=== PATIENT | female | born 1945 | race Caucasian/White ===

== ENCOUNTER → 2016-10-13 | Outpatient (CLI) | payer BC ==
[2016-10-13 13:42] LABS: BASO % 0.3 %; BASO ABS # 0.02 K/uL (0-0.2); COMPLETE YES; EOS % 1.3 %; HEMATOCRIT 42.1 % (37-47); IG% 0.2 %; LYMPH ABS # 1.71 K/uL (1.2-3.4); MEAN CELL VOLUME 91.1 fL (80-100); MEAN CORPUSCULAR HEMOGLOBIN 30.7 pg (25-34); MEAN CORPUSCULAR HGB CONC 33.7 g/dl (32-36); MEAN PLATELET VOLUME 12.5 fL (7.4-10.4); MONO % 9.2 %; PLATELET COUNT 194 K/uL (130-400); RED BLOOD COUNT 4.62 M/uL (4.2-5.4)
[2016-10-13 13:50] LABS: ALT/SGPT 29 U/L (12-78); AST/SGOT 12 U/L (15-37); BLOOD UREA NITROGEN 12 mg/dl (7-18); BUN/CREATININE RATIO 15.8 (10-20); CALCIUM 10.1 mg/dl (8.5-10.1); CARBON DIOXIDE 29 mmol/L (21-32); CHLORIDE 110 mmol/L (98-107); CREATININE 0.75 mg/dl (0.60-1.20); GLUCOSE 88 mg/dl (70-99); POTASSIUM 4.6 mmol/L (3.5-5.1); SODIUM 145 mmol/L (136-145)
[2016-10-13 13:56] LABS: ALB/GLOB RATIO 1.1 (0.9-2); ALKALINE PHOSPHATASE 128 U/L (45-117); CHOLESTEROL 191 mg/dl (0-200); CHOLESTEROL/HDL RATIO 2.6; HDL CHOLESTEROL 74 mg/dl; LDL CHOLESTEROL CALCULATED 99 mg/dl; TRIGLYCERIDES 91 mg/dl (0-150); VERY LOW DENSITY LIPOPROT CALC 18 mg/dl
== END | disposition home or self-care (01) ==
LOC: C.LABBC 09:47
PROVIDERS: ATTEND Internal Medicine
DX: Z00.00 Encounter for general adult medical examination without abnormal findings (principal); R74.8 Abnormal levels of other serum enzymes

== ENCOUNTER → 2017-05-09 | Outpatient (CLI) | payer BC ==
--- NOTE | 2017-05-09 15:34 | MAMMOGRAPHY REPORT ---
BILATERAL DIGITAL SCREENING MAMMOGRAM WITH CAD: 05/09/2017 CLINICAL HISTORY: Routine screening examination. TECHNIQUE: Bilateral CC and MLO views were obtained. Current study was also evaluated with a Compute r Aided Detection (CAD) system. COMPARISON: Comparison is made to exams dated: 05/06/2016 mammogram, 04/22/2015 mammogram, 04/16/2014 ma mmogram, and 04/12/2013 mammogram - [facility]. BREAST COMPOSITION: There are scattered areas of fibroglandular density in both breasts. FINDINGS: There is a stable intramammary lymph node in the right upper outer quadrant posteriorly. Stable focal asymmetry in the left upper outer posterior breast. No new suspicious mass, architectur al distortion or cluster of microcalcifications is seen. IMPRESSION: ACR BI-RADS CATEGORY 1: NEGATIVE There is no mammographic evidence of malignancy. A 1 year screening mammogram is recommended. The pa tient will receive written notification of the results. Approximately 10% of breast cancers are not detected with mammography. A negative mammographic report should not delay biopsy if a clinically suggestive mass is present. Kaylie Allen M.D. ay/:05/09/2017 14:45:20 Clinical Nursing Coordinator: Yvette ALBA(R)(M), [facility] letter sent: Normal 1/2 BI-RADS Code: ACR BI-RADS Category 1: Negative
== END | disposition home or self-care (01) ==
LOC: C.MAMM 11:24
PROVIDERS: ATTEND Internal Medicine
DX: Z12.31 Encounter for screening mammogram for malignant neoplasm of breast (principal)

== ENCOUNTER → 2017-06-15 | Outpatient (CLI) | payer BC ==
[2017-06-15 10:45] LABS: HEMATOCRIT 44.2 % (37-47); MEAN CELL VOLUME 92.3 fL (80-100); MEAN CORPUSCULAR HEMOGLOBIN 29.4 pg (25-34); MEAN CORPUSCULAR HGB CONC 31.9 g/dl (32-36); MEAN PLATELET VOLUME 12.3 fL (7.4-10.4); PLATELET COUNT 205 K/uL (130-400); RED BLOOD COUNT 4.79 M/uL (4.2-5.4); WHITE BLOOD COUNT 4.25 K/uL (4.8-10.8)
[2017-06-15 11:11] LABS: ALT/SGPT 21 U/L (12-78); AST/SGOT 10 U/L (15-37); BLOOD UREA NITROGEN 12 mg/dl (7-18); BUN/CREATININE RATIO 20.5 (10-20); CALCIUM 10.6 mg/dl (8.5-10.1); CARBON DIOXIDE 27 mmol/L (21-32); CHLORIDE 109 mmol/L (98-107); CHOLESTEROL 200 mg/dl (0-200); GLUCOSE 88 mg/dl (70-99); POTASSIUM 4.3 mmol/L (3.5-5.1); SODIUM 143 mmol/L (136-145); TRIGLYCERIDES 61 mg/dl (0-150); VERY LOW DENSITY LIPOPROT CALC 12 mg/dl
[2017-06-15 11:16] LABS: ALB/GLOB RATIO 1.2 (0.9-2); ALKALINE PHOSPHATASE 133 U/L (45-117); CHOLESTEROL/HDL RATIO 2.5; HDL CHOLESTEROL 81 mg/dl; LDL CHOLESTEROL CALCULATED 107 mg/dl
== END | disposition home or self-care (01) ==
LOC: C.LABBC 08:52
PROVIDERS: ATTEND Internal Medicine
DX: R74.8 Abnormal levels of other serum enzymes (principal)

== ENCOUNTER → 2017-09-13 | Outpatient (CLI) | payer BC ==
[~2017-09-13] MED LIST: ASPCH81X PO; VITAMIN D PO
[2017-09-13 13:24] LABS: BLOOD UREA NITROGEN 11 mg/dl (7-18); CALCIUM 9.9 mg/dl (8.5-10.1); CARBON DIOXIDE 28 mmol/L (21-32); CREATININE 0.66 mg/dl (0.60-1.20); GLUCOSE 87 mg/dl (70-99); POTASSIUM 4.4 mmol/L (3.5-5.1); SODIUM 139 mmol/L (136-145)
== END | disposition home or self-care (01) ==
LOC: C.LABBC 09:43
PROVIDERS: ATTEND Internal Medicine
DX: E83.52 Hypercalcemia (principal); R74.8 Abnormal levels of other serum enzymes

== ENCOUNTER → 2017-10-17 | Outpatient (CLI) | payer BC | END | disposition home or self-care (01) | LOC: C.MAMM 09:13 | PROVIDERS: ATTEND Internal Medicine | DX: M85.88 Other specified disorders of bone density and structure, other site (principal); M81.0 Age-related osteoporosis without current pathological fracture; E21.3 Hyperparathyroidism, unspecified ==

== ENCOUNTER → 2017-11-14 | Day surgery (SDC) | payer BC ==
[2017-11-01 14:55] VITALS: Ht 167.6 cm; Wt 81.8 kg
[~2017-11-14] VITALS: Ht 167.6 cm; Wt 81.8 kg
[~2017-11-14] MED LIST changes: +LIDOCAINE HCL 2% 2 ML VIAL (20MG/ML) ONE; +PROPOFOL IV EMULSION 10 MG/ML 20 ML VIAL IV ONE
--- NOTE | 2017-11-14 09:48 | Endo History and Physical ---
History & Physical Date of Service: Nov 14, 2017. Chief Complaint: Screening Referring Physician: Dr. Pablo Sue History of Present Illness 72 yo CF who presents for screening colonoscopy. Past Surgical History Hx Cardiac Surgery: No Hx Internal Defibrillator: No Hx Pacemaker: No Hx Abdominal Surgery: Yes (D&E) Hx of Implantable Prosthesis: No Hx Post-Op Nausea and Vomiting: No Hx Cancer Surgery: No Hx Thoracic Surgery: No Hx Orthopedic: No Hx Urinary Tract Surgery: No Family History None Social History Smoking Status: Never Smoker Hx Substance Use: No Hx Alcohol Use: Yes (OCCASIONALLY) Allergies Coded Allergies: NO KNOWN DRUG ALLERGIES (Verified Allergy, Unknown, ., 11/01/17) Current Medications Reported Home Medications Medications Dose Route/Sig Max Daily Dose Days Date Category [Vitamin D] 1 Tab PO QAM 11/01/17 Reported Aspirin Chewable (Aspirin) 81 Mg Chew 81 Mg PO QAM 11/01/17 Reported Vital Signs Weight (Kilograms): 81.82 Height (Feet): 5 Height (Inches): 6 Physical Exam General Appearance: WD/WN, no apparent distress Respiratory/Chest: Auscultation: breath sounds normal Cardiovascular: Heart Auscultation: RRR Abdomen: Bowel Sounds: normal Inspection & Palpation: soft, non-distended, no tenderness, guarding & rebound Assessment and Plan Assessment: 72 yo CF who presents for screening colonoscopy. Plan: Proceed with colonoscopy.
--- NOTE | 2017-11-14 11:12 | Discharge Instructions ---
Endoscopy Patient Instructions Date / Procedure(s) Performed Nov 14, 2017. Colonoscopy Allergy Information Coded Allergies: NO KNOWN DRUG ALLERGIES (Verified Allergy, Unknown, ., 11/01/17) Discharge Date / Findings Nov 14, 2017. Colon polyps Diverticulosis Internal hemorrhoids Medication Instructions Stopped Medication(s): Patient stopped her aspirin and vitamin d. OK to resume all medications today as prescribed Reported Home Medications Medications Dose Route/Sig Max Daily Dose Days Date Category [Vitamin D] 1 Tab PO QAM 11/01/17 Reported Aspirin Chewable (Aspirin) 81 Mg Chew 81 Mg PO QAM 11/01/17 Reported Provider Instructions Activity Restrictions - No exercising or heavy lifting for 24 hours. - Do not drink alcohol the day of the procedure. - Do not drive a car or operate machinery until the day after the procedure. - Do not make any important decisions or sign important papers in 24 hours after the procedure. Following Day: - Return to full activity which may include returning to work/school. Diet Start your diet with liquids and light foods (jello, soup, juice, toast). Then eat your usual diet if not nauseated. Treatment For Common After Affects For mild abdominal pain, bloating, or excessive gas: - Rest - Eat lightly - Lie on right side Follow-Up Information Follow-up with Dr. Pablo Sue as scheduled Anesthesia Information What You Should Know You have had a procedure that required some medicine to reduce anxiety and discomfort. This treatment is called moderate sedation. After receiving the treatment, you may be sleepy, but you will be able to breathe on your own. The effects of the treatment may last for several hours. Follow these instructions along with Activity/Diet recommendations noted above: * Do NOT do anything where dizziness or clumsiness would be dangerous. * Rest quietly at home today, then you can be up and about tomorrow. * Have a responsible person stay with you the rest of today. * You may have had an I.V. today. If so, you may take the dressing off later today. Recommendations Call your doctor if: * Trouble breathing * Continuous vomiting for more than 24 hours * Temperature above 101 degrees * Severe abdominal pain or bloating * Pain not relieved by pain medicine ordered * There is increased drainage or redness from any incision * A large amount of rectal bleeding greater than 2-3 tablespoons. (If you had a polyp/s removed or have hemorrhoids, a small amount of blood - from the rectum is to be expected.) * You have any unanswered questions or concerns. IN THE EVENT OF A SERIOUS EMERGENCY, GO TO THE NEAREST EMERGENCY ROOM Your discharge instructions were prepared by provider Jose Neumann. Patient Instructions Signature Page Alda Ibrahim Patient (or Guardian) Signature/Date: I have read and understand the instructions given to me by my caregivers. Caregiver/RN/Doctor Signature/Date: The above-named patient and/or guardian has received patient instructions on this date. + Original Patient Signature Page (only) stays with chart. Please make copy for patient.
--- NOTE | 2017-11-14 11:21 | GI REPORT ---
Procedure Date: 11/14/2017 10:39 AM Procedure: Colonoscopy Indications: Screening for colorectal malignant neoplasm Medicines: Monitored Anesthesia Care Complications: No immediate complications. Estimated Blood Loss: Estimated blood loss: none. Procedure: Pre-Anesthesia Assessment: - Prior to the procedure, a History and Physical was performed, and patient medications and allergies were reviewed. The patient's tolerance of previous anesthesia was also reviewed. The risks and benefits of the procedure and the sedation options and risks were discussed with the patient. All questions were answered, and informed consent was obtained. Prior Anticoagulants: The patient has taken aspirin, last dose was 2 days prior to procedure. ASA Grade Assessment: I - A normal, healthy patient. After reviewing the risks and benefits, the patient was deemed in satisfactory condition to undergo the procedure. After I obtained informed consent, the scope was passed under direct vision. Throughout the procedure, the patient's blood pressure, pulse, and oxygen saturations were monitored continuously. The scope was introduced through the anus and advanced to the terminal ileum. The colonoscopy was performed without difficulty. The patient tolerated the procedure well. The quality of the bowel preparation was good. The terminal ileum, ileocecal valve, appendiceal orifice, and rectum were photographed. Findings: The perianal and digital rectal examinations were normal. A 3 mm polyp was found in the ascending colon. The polyp was sessile. The polyp was removed with a cold biopsy forceps. Resection and retrieval were complete. Two sessile polyps were found in the transverse colon. The polyps were 4 to 5 mm in size. These polyps were removed with a cold snare. Resection and retrieval were complete. Multiple small-mouthed diverticula were found in the sigmoid colon. Non-bleeding internal hemorrhoids were found during retroflexion. The hemorrhoids were small. Impression: - One 3 mm polyp in the ascending colon, removed with a cold biopsy forceps. Resected and retrieved. - Two 4 to 5 mm polyps in the transverse colon, removed with a cold snare. Resected and retrieved. - Diverticulosis in the sigmoid colon. - Non-bleeding internal hemorrhoids. Recommendation: - Resume previous diet. - Continue present medications. - Repeat colonoscopy for surveillance based on pathology results. - Return to primary care physician as previously scheduled. Jose Neumann DO 11/14/2017 11:20:38 AM This report has been signed electronically. Note Initiated On: 11/14/2017 10:39 AM I attest to the content of the Intraoperative Record and orders documented therein, exceptions below
--- NOTE | 2017-11-14 11:35 | Anesthesiology Progress Note ---
Anesthesia Post Op Note Date & Time Nov 14, 2017 at 11:35 Vital Signs Pain Intensity: 0 Vital Signs Past 12 Hours Date Time Temp Pulse Resp B/P (MAP) Pulse Ox O2 Delivery O2 Flow Rate FiO2 11/14/17 11:26 63 16 162/99 (120) 100 Room Air 11/14/17 11:11 69 16 143/74 (97) 98 Room Air 11/14/17 09:52 36.6 68 18 141/82 (101) 97 Room Air Notes Mental Status: alert / awake / arousable, participated in evaluation Pt Amnestic to Procedure: Yes Nausea / Vomiting: adequately controlled Pain: adequately controlled Airway Patency, RR, SpO2: stable & adequate BP & HR: stable & adequate Hydration State: stable & adequate Anesthetic Complications: no major complications apparent
[2017-11-14 11:41] VITALS: BP 153/105; PULSE 60; O2SAT 100
== END | disposition home or self-care (01) ==
LOC: C.GI 09:23
PROVIDERS: ATTEND Internal Medicine
DX: Z12.11 Encounter for screening for malignant neoplasm of colon (principal); D12.2 Benign neoplasm of ascending colon; D12.3 Benign neoplasm of transverse colon; K57.30 Diverticulosis of large intestine without perforation or abscess without bleeding; K64.8 Other hemorrhoids; Z79.82 Long term (current) use of aspirin

== ENCOUNTER → 2017-12-23 | Outpatient (CLI) | payer BC ==
[~2017-12-23] MED LIST changes: -LIDOCAINE HCL 2% 2 ML VIAL (20MG/ML) ONE; -PROPOFOL IV EMULSION 10 MG/ML 20 ML VIAL IV ONE
[2017-12-23 14:18] LABS: ALBUMIN 4.1 gm/dl (3.4-5.0); ALT/SGPT 40 U/L (12-78); BLOOD UREA NITROGEN 18 mg/dl (7-18); CALCIUM 10.4 mg/dl (8.5-10.1); CARBON DIOXIDE 26 mmol/L (21-32); CREATININE 0.62 mg/dl (0.60-1.20); GLUCOSE 95 mg/dl (70-99); POTASSIUM 4.4 mmol/L (3.5-5.1); SODIUM 139 mmol/L (136-145)
[2017-12-23 14:28] LABS: ALKALINE PHOSPHATASE 133 U/L (45-117); AST/SGOT 19 U/L (15-37); TOTAL PROTEIN 7.2 gm/dl (6.4-8.2)
== END | disposition home or self-care (01) ==
LOC: C.LAB1850 12:00
PROVIDERS: ATTEND Internal Medicine
DX: E21.3 Hyperparathyroidism, unspecified (principal)

== ENCOUNTER 2023-01-12 08:07 | Inpatient (IN) ==
[2023-01-12] MEDS ORDERED: ONDANSETRON INJ 2 MG/ML 2 ML VIAL IV STA (08:34)
[2023-01-12] MEDS ORDERED: SODIUM CHLORIDE 0.9% 500 ML IV ONE (08:34)
[2023-01-12] MEDS ORDERED: MoRPHine SULFATE 4 MG/ML 1 ML CARP\\VIAL IV STA (08:34)
--- NOTE | 2023-01-12 08:38 | Emergency Department Note ---
Impression & Plan Acute pancreatitis, Abdominal pain, Vomiting ED Provider Note NAME: ANDI FLOYD AGE: 77 SEX: F : 1945 ARRIVES VIA: Walk-In INFORMANT: Patient ED PROVIDER(S): Epifanio Farmer DO CHIEF COMPLAINT: abdominal pain HPI: Patient is a 77-year-old female who presents to the ER for epigastric abdominal pain which radiates through to the back associated with nausea and vom iting. She notes this started yesterday. It is worse with eating. Improves with bowel rest. She has been passing much more gas and burping much more. Denies any dysuria urgency or frequency. No chest pain or shortness of breath. No exertional symptoms. 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 She has not been eating and drinking much secondary to the pain. Has not take anything specifically for the pain. PAST MEDICAL HISTORY:See Below PAST SURGICAL HISTORY:See Below FAMILY HISTORY:See Below SOCIAL HISTORY:See Below HOME MEDICATIONS:See Below ALLERGIES:See Below VITALS:See Below PHYSICAL EXAMINATION: GENERAL: Sitting up in bed, alert, well appearing, well nourished, no distress, non-toxic EYE EXAM: normal conjunctiva. OROPHARYNX:mucous membranes are moist LUNGS: Clear to auscultation. Normal chest wall mechanics HEART: no murmurs, S1 normal and S2 normal ABDOMEN: abdomen soft, TTP in epigastric region, normo-active bowel sounds, no masses, no rebound or guarding. BACK: Back is symmetrical on inspection and there is no deformity, no midline tenderness, no CVA tenderness. UPPER EXTREMITIES: upper extremities are grossly normal. LOWER EXTREMITIES: No pitting edema. NEURO EXAM: Normal sensorium, cranial nerves II-XII grossly intact, normal speech, no gross weakness of arms, no gross weakness of legs. MEDICAL DECISION MAKING: Patient is a 77-year-old female who presents ER for abdominal pain. IV was established blood work was obtained. External records were reviewed. Labs show mild leukocytosis 11,000. No significant anemia. BMP with slightly elevated chloride at 110. Bilirubin LFTs were unremarkable. Lipase was elevated at 300. UA was contaminated without urinary symptoms. CT abdomen pelvis confirms acute pancreatitis. She was given fluids Zofran and 2 doses of morphine. She is updated bedside discussed with the hospitalist Dr. Bro Villeda as well as the care managers and admitted for further work-up. Triage Nursing notes reviewed. Limited review of prior medical records performed Vital Signs: reviewed and remarkable for HTN Differential diagnosis: Differential diagnoses includes but is not limited to gastritis, peptic ulcer disease, GERD, gallbladder disease, pancreatitis, small bowel obstruction, appendicitis, diverticulitis, hernia, urinary tract infection, torsion, perforation, trauma, infectious. ER treatment provided: See below Diagnostics interpreted by me include EKG and cardiac monitoring as listed below: -Cardiac Monitoring: An order was placed for continuous cardiac monitoring. The monitor shows a rate of 90 with sinus rhythm. -ECG: Sinus rhythm rate 83 Left axis No PVCs QTc 441 -Laboratory studies:Interpreted by me as stated above in MDM and shown below. Imaging studies: Xrays: As interpreted by me:none CTs show: CT abdomen pelvis per my read showed no obvious obstruction CT abdomen pelvis per radiology shows pancreatitis Consultation(s): As described in MDM Procedures:none Critical Care: None Past Med/Surg History Medical History (Updated 01/12/23 @ 15:13 by Epifanio Farmer DO) Diverticulosis Mild hypertension pt reports no meds needed Vitamin D deficiency Surgical History H/O breast biopsy H/O parathyroidectomy History of surgery Whipple Procedure 2019- had a non cancerous spot on pancreas Hx of colonoscopy S/P tubal ligation Family History Father Stroke syndrome Coronary heart disease Mother Coronary heart disease Lung cancer Myocardial infarction Sister Breast cancer Unknown Breast cancer Aunt Breast cancer Denies family history of Ovarian cancer Prostate cancer Colorectal cancer Social History Smoking Status: Never smoker Second Hand Exposure: No; Do You Dip or Chew Tobacco: No; Hx Alcohol Use: Yes Alcohol type: wine Hx Substance Use: No Preferred Language: Azerbaijani Communication Ability: Effective Visual Impairment: No Limitations Hearing Ability: Normal Grain Grader Required: No Beliefs That Will Affect Care: None marital status: Current Living Situation: Spouse current occupational status: retired Feels Safe at Home: Yes Childhood Exposure to Second-Hand Smoke: No Dental Care, Regularly: Yes Physical Activity Frequency: 3-4 Times per Week Seatbelt Use: always Sunscreen Use: Yes Assistive Devices: Glasses Allergies Allergies Allergy/AdvReac Type Severity Reaction Status Date / Time No Known Drug Allergies Allergy Unknown . Verified 01/04/23 08:44 Home Meds Home Medications Medication Instructions Recorded Confirmed aspirin 81 mg tablet,delayed 81 mg PO QAM 03/27/19 01/12/23 release (Jonnie Low Dose Aspirin) Previous Rx's Medication Instructions Recorded cholecalciferol (vitamin D3) 50 10,000 unit PO QAM #30 tabs 10/19/21 mcg (2,000 unit) tablet sodium sul 1.479 gram-potas ch See Rx Instructions PO .COMPLEX 12/31/22 0.188 gram-magnes sul 0.225 gram #24 tabs tablet (Sutab) Results & Data (ED) Vital Signs Vital Signs - 24 hr 01/12/23 08:19 01/12/23 08:32 01/12/23 08:47 Temperature 36.8 C Temperature Source Temporal Artery Scan Pulse Rate 91 H 81 Pulse Rate from SpO2 Sensor Respiratory Rate 18 Blood Pressure 187/84 H Blood Pressure Mean 118 Pulse Oximetry 97 97 Oxygen Delivery Method Room Air Room Air Sepsis Recent Fever Within 48 Hours No Sepsis New/Unexplained Change in Mental Status No Sepsis Action Taken by Nursing No Action Required 01/12/23 08:46 01/12/23 09:00 01/12/23 09:30 Temperature Temperature Source Pulse Rate 79 84 77 Pulse Rate from SpO2 Sensor 80 80 75 Respiratory Rate 27 H 21 17 Blood Pressure Blood Pressure Mean Pulse Oximetry 97 96 96 Oxygen Delivery Method Sepsis Recent Fever Within 48 Hours Sepsis New/Unexplained Change in Mental Status Sepsis Action Taken by Nursing 01/12/23 09:45 01/12/23 10:00 01/12/23 10:18 Temperature Temperature Source Pulse Rate 76 73 92 H Pulse Rate from SpO2 Sensor 76 75 88 Respiratory Rate 17 16 23 Blood Pressure Blood Pressure Mean Pulse Oximetry 96 95 95 Oxygen Delivery Method Sepsis Recent Fever Within 48 Hours Sepsis New/Unexplained Change in Mental Status Sepsis Action Taken by Nursing 01/12/23 10:30 01/12/23 10:38 01/12/23 10:38 Temperature Temperature Source Pulse Rate 77 79 Pulse Rate from SpO2 Sensor 79 80 Respiratory Rate 24 24 Blood Pressure 158/89 H Blood Pressure Mean 112 Pulse Oximetry 99 97 Oxygen Delivery Method Sepsis Recent Fever Within 48 Hours Sepsis New/Unexplained Change in Mental Status Sepsis Action Taken by Nursing 01/12/23 10:45 01/12/23 11:00 01/12/23 11:00 Temperature Temperature Source Pulse Rate 81 79 Pulse Rate from SpO2 Sensor 76 81 Respiratory Rate 17 17 Blood Pressure 172/82 H Blood Pressure Mean 112 Pulse Oximetry 93 96 Oxygen Delivery Method Sepsis Recent Fever Within 48 Hours Sepsis New/Unexplained Change in Mental Status Sepsis Action Taken by Nursing 01/12/23 11:15 01/12/23 11:30 01/12/23 11:30 Temperature Temperature Source Pulse Rate 79 85 Pulse Rate from SpO2 Sensor 79 80 Respiratory Rate 16 17 Blood Pressure 164/79 H Blood Pressure Mean 107 Pulse Oximetry 93 92 Oxygen Delivery Method Sepsis Recent Fever Within 48 Hours Sepsis New/Unexplained Change in Mental Status Sepsis Action Taken by Nursing 01/12/23 11:45 01/12/23 12:05 01/12/23 12:08 Temperature Temperature Source Pulse Rate 79 87 Pulse Rate from SpO2 Sensor 81 Respiratory Rate 19 15 Blood Pressure 169/76 H Blood Pressure Mean 107 Pulse Oximetry 95 Oxygen Delivery Method Sepsis Recent Fever Within 48 Hours Sepsis New/Unexplained Change in Mental Status Sepsis Action Taken by Nursing 01/12/23 12:08 01/12/23 12:15 01/12/23 12:30 Temperature Temperature Source Pulse Rate 83 80 Pulse Rate from SpO2 Sensor Respiratory Rate 22 14 Blood Pressure 167/93 H Blood Pressure Mean 117 Pulse Oximetry Oxygen Delivery Method Sepsis Recent Fever Within 48 Hours Sepsis New/Unexplained Change in Mental Status Sepsis Action Taken by Nursing 01/12/23 12:30 01/12/23 12:45 01/12/23 13:03 Temperature Temperature Source Pulse Rate 82 84 79 Pulse Rate from SpO2 Sensor Respiratory Rate 20 15 Blood Pressure Blood Pressure Mean Pulse Oximetry Oxygen Delivery Method Sepsis Recent Fever Within 48 Hours Sepsis New/Unexplained Change in Mental Status Sepsis Action Taken by Nursing 01/12/23 13:00 01/12/23 13:00 01/12/23 13:15 Temperature Temperature Source Pulse Rate 79 79 Pulse Rate from SpO2 Sensor Respiratory Rate 18 17 Blood Pressure 158/87 H Blood Pressure Mean 110 Pulse Oximetry Oxygen Delivery Method Sepsis Recent Fever Within 48 Hours Sepsis New/Unexplained Change in Mental Status Sepsis Action Taken by Nursing 01/12/23 13:30 01/12/23 13:30 01/12/23 13:45 Temperature Temperature Source Pulse Rate 79 79 Pulse Rate from SpO2 Sensor Respiratory Rate 18 15 Blood Pressure 155/81 H Blood Pressure Mean 105 Pulse Oximetry Oxygen Delivery Method Sepsis Recent Fever Within 48 Hours Sepsis New/Unexplained Change in Mental Status Sepsis Action Taken by Nursing 01/12/23 14:00 01/12/23 14:00 01/12/23 14:15 Temperature Temperature Source Pulse Rate 78 79 Pulse Rate from SpO2 Sensor Respiratory Rate 16 15 Blood Pressure 165/91 H Blood Pressure Mean 115 Pulse Oximetry Oxygen Delivery Method Sepsis Recent Fever Within 48 Hours Sepsis New/Unexplained Change in Mental Status Sepsis Action Taken by Nursing 01/12/23 14:30 01/12/23 14:30 01/12/23 14:45 Temperature Temperature Source Pulse Rate 79 83 Pulse Rate from SpO2 Sensor Respiratory Rate 16 15 Blood Pressure 153/79 H Blood Pressure Mean 103 Pulse Oximetry Oxygen Delivery Method Sepsis Recent Fever Within 48 Hours Sepsis New/Unexplained Change in Mental Status Sepsis Action Taken by Nursing Laboratory Data 01/12/23 08:30 01/12/23 08:30 Lab Results 01/12/23 01/12/23 01/12/23 Range/Units 08:30 08:30 08:50 WBC 11.02 H (4.8-10.8) K/ul RBC 4.60 (4.20-5.40) M/uL Hgb 14.1 (12.0-16.0) g/dl Hct 41.5 (37.0-47.0) % MCV 90.2 (80.0-100.0) fL MCH 30.7 (25.0-34.0) pg MCHC 34.0 (32.0-36.0) g/dL RDW Std Deviation 42.4 (36.4-46.3) fL RDW Coeff of Radha 13.0 (11.5-14.5) % Plt Count 233 (130-400) K/uL MPV 11.7 (9.4-12.4) fL Immature Gran % (Auto) 0.3 % Neut % (Auto) 80.8 % Lymph % (Auto) 11.7 % Parke % (Auto) 6.6 % Eos % (Auto) 0.3 % Baso % (Auto) 0.3 % Neut # (Auto) 8.91 H (1.40-6.50) K/uL Lymph # (Auto) 1.29 (1.2-3.4) K/uL Parke # (Auto) 0.73 H (0.11-0.59) K/uL Eos # (Auto) 0.03 (0-0.50) K/uL Baso # (Auto) 0.03 (0-0.2) K/uL Immature Gran # (Auto) 0.03 (0.01-0.20) K/uL Sodium 140 (136-145) mmol/L Potassium 4.1 (3.5-5.1) mmol/L Chloride 110 H (98-107) mmol/L Carbon Dioxide 24 (21-32) mmol/L Anion Gap 6 (3-11) BUN 13 (6-23) mg/dl Creatinine 0.60 (0.6-1.2) mg/dl Est Cr Clr Drug Dosing 86.1 ml/min Est GFR ( Amer) 102.6 ml/min Est GFR (Non-Af Amer) 88.5 ml/min BUN/Creatinine Ratio 21.7 H (10-20) Glucose 126 H (70-99(Fasting)) mg/dl Calcium 8.9 (8.6-10.3) mg/dl Total Bilirubin 0.8 (0.2-1.0) mg/dl AST 17 (13-39) U/L ALT 23 (7-52) U/L Alkaline Phosphatase 108 H (34-104) U/L Total Protein 7.0 (6.0-8.3) gm/dl Albumin 4.3 (3.4-5.0) gm/dl Globulin 2.7 (2.5-4.0) gm/dl Albumin/Globulin Ratio 1.6 (0.9-2) Triglycerides 55 (0-150) mg/dl Lipase 293 H (11-82) U/L Urine Color Dark Yellow Urine Appearance Cloudy A (Clear) Urine pH 5.5 (4.5-7.5) Ur Specific [place] 1.024 (1.000-1.030) Urine Protein 2+ H (Negative) Urine Glucose (UA) Negative (Negative) Urine Ketones Trace H (Negative) Urine Blood Negative (Negative) Urine Nitrite Negative (Negative) Urine Bilirubin 1+ H (Negative) Urine Urobilinogen Negative (Negative) Ur Leukocyte Esterase Trace H (Negative) Urine WBC (Auto) 5-10 H (0-5) /hpf Urine RBC (Auto) 0-4 (0-4) /hpf U Hyaline Cast (Auto) >30 H (0-5) /lpf U Epithel Cells (Auto) >30 H (0-5) /lpf Urine Bacteria (Auto) Negative (Negative) Urine Crystals Not Reportable Calcium Oxalate Crystal Present A (None Prsent) Granular Casts 10-20 H (0) /lpf SARS-CoV-2, RNA, NAAT (NEGATIVE) 01/12/23 Range/Units 12:15 WBC (4.8-10.8) K/ul RBC (4.20-5.40) M/uL Hgb (12.0-16.0) g/dl Hct (37.0-47.0) % MCV (80.0-100.0) fL MCH (25.0-34.0) pg MCHC (32.0-36.0) g/dL RDW Std Deviation (36.4-46.3) fL RDW Coeff of Radha (11.5-14.5) % Plt Count (130-400) K/uL MPV (9.4-12.4) fL Immature Gran % (Auto) % Neut % (Auto) % Lymph % (Auto) % Parke % (Auto) % Eos % (Auto) % Baso % (Auto) % Neut # (Auto) (1.40-6.50) K/uL Lymph # (Auto) (1.2-3.4) K/uL Parke # (Auto) (0.11-0.59) K/uL Eos # (Auto) (0-0.50) K/uL Baso # (Auto) (0-0.2) K/uL Immature Gran # (Auto) (0.01-0.20) K/uL Sodium (136-145) mmol/L Potassium (3.5-5.1) mmol/L Chloride (98-107) mmol/L Carbon Dioxide (21-32) mmol/L Anion Gap (3-11) BUN (6-23) mg/dl Creatinine (0.6-1.2) mg/dl Est Cr Clr Drug Dosing ml/min Est GFR ( Amer) ml/min Est GFR (Non-Af Amer) ml/min BUN/Creatinine Ratio (10-20) Glucose (70-99(Fasting)) mg/dl Calcium (8.6-10.3) mg/dl Total Bilirubin (0.2-1.0) mg/dl AST (13-39) U/L ALT (7-52) U/L Alkaline Phosphatase (34-104) U/L Total Protein (6.0-8.3) gm/dl Albumin (3.4-5.0) gm/dl Globulin (2.5-4.0) gm/dl Albumin/Globulin Ratio (0.9-2) Triglycerides (0-150) mg/dl Lipase (11-82) U/L Urine Color Urine Appearance (Clear) Urine pH (4.5-7.5) Ur Specific [place] (1.000-1.030) Urine Protein (Negative) Urine Glucose (UA) (Negative) Urine Ketones (Negative) Urine Blood (Negative) Urine Nitrite (Negative) Urine Bilirubin (Negative) Urine Urobilinogen (Negative) Ur Leukocyte Esterase (Negative) Urine WBC (Auto) (0-5) /hpf Urine RBC (Auto) (0-4) /hpf U Hyaline Cast (Auto) (0-5) /lpf U Epithel Cells (Auto) (0-5) /lpf Urine Bacteria (Auto) (Negative) Urine Crystals Calcium Oxalate Crystal (None Prsent) Granular Casts (0) /lpf SARS-CoV-2, RNA, NAAT NEGATIVE (NEGATIVE) Administered Medications Discontinued Medications Sodium Chloride (Nss) 500 mls @ 999 mls/hr IV .Q31M ONE Stop: 01/12/23 09:04 Last Infusion: 01/12/23 09:22 Dose: 0 mls/hr Documented By: Admin: 01/12/23 08:44 Dose: 999 mls/hr Documented By: RADHA Lactated Ringer's (Lr) 1,000 mls @ 999 mls/hr IV .Q1H1M ONE Stop: 01/12/23 13:19 Last Infusion: 01/12/23 13:28 Dose: 0 mls/hr Documented By: Admin: 01/12/23 12:26 Dose: 999 mls/hr Documented By: KELY Ioversol (Optiray 320 100ml) 89 ml IV ONCE ONE Stop: 01/12/23 10:15 Last Admin: 01/12/23 10:14 Dose: 89 ml Documented By: KSF Morphine Sulfate (Morphine Sulfate 4 Mg/Ml 1 Ml Carp\Vial) 4 mg IV NOW STA Stop: 01/12/23 08:35 Last Admin: 01/12/23 08:45 Dose: 4 mg Documented By: AM Morphine Sulfate (Morphine Sulfate 10 Mg/Ml Carp/Vial) 6 mg IV NOW STA Stop: 01/12/23 10:23 Last Admin: 01/12/23 10:35 Dose: 6 mg Documented By: AM Ondansetron HCl (Ondansetron Inj 2 Mg/Ml 2 Ml Vial) 4 mg IV NOW STA Stop: 01/12/23 08:35 Last Admin: 01/12/23 08:44 Dose: 4 mg Documented By: AM Imaging Data Radiologist's Impression: Abdomen/Pelvis CT 01/12/23 08:[address] WITH IV CONTRAST CT DOSE: 555.60 mGy.cm HISTORY: Generalized abdominal pain. TECHNIQUE: Multiaxial CT images of the abdomen and pelvis were performed following the use of intravenous contrast. A dose lowering technique was utilized adhering to the principles of ALARA. COMPARISON STUDY: Abdomen and pelvis CT 10/04/2019. FINDINGS: The lung bases are clear. No pneumoperitoneum. No pneumatosis. No acute fractures identified. Artifact versus a small filling defect seen within a left lower lobe subsegmental pulmonary artery on image 13. There is a 3.3 cm cyst within the right hepatic dome, unchanged. Mild hepatic steatosis. The main portal vein is patent. The spleen, adrenal glands, and right kidney are unremarkable. There is a 1.2 cm cyst within the left kidney, unchanged. There are small bilateral peripelvic renal cysts. No hydronephrosis. Normal caliber abdominal aorta. No retroperitoneal lymphadenopathy. Status post Whipple procedure. There is edema/inflammatory change surrounding the residual pancreas consistent with an acute pancreatitis. There is a main pancreatic duct stent seen within the mid aspect of the residual pancreas. There is mild dilatation of the main pancreatic duct measuring up to 5.5 mm. There are few punctate foci of gas within the mid abdomen on image 152 which likely resides within the adjacent bowel. Pneumobilia is noted. No loculated fluid collections identified. No evidence for pancreatic necrosis. The bladder, uterus, and adnexa are unremarkable. Trace fluid anterior to the liver. Mild thickening of the gastric wall adjacent to the pancreas which is likely reactive. Otherwise, no bowel wall thickening or obstruction. Normal appendix. Colonic diverticulosis. No evidence for acute diverticulitis. IMPRESSION: 1. Prior Whipple procedure. There is edema/fat stranding surrounding the residual pancreas consistent with acute pancreatitis. 2. There is a main pancreatic duct stent seen within the mid aspect of the residual pancreas. There is mild dilatation of the main pancreatic duct measuring up to 5.5 mm. 3. Artifact versus a small filling defect seen within a left lower lobe subsegmental pulmonary artery. A small pulmonary embolus is not excluded. 4. Mild hepatic steatosis. 5. Additional findings as described above. ACT 112: Negative or not required by law. Electronically signed by: Krzysztof Bowen M.D. 01/12/2023 11:07 AM Discharge Plan Visit Data Chief Complaint: Abdominal Pain Stated Complaint: SEVERE ABD PAIN, CHILLS ED Provider: Epifanio Farmer Discharge Problem: Acute pancreatitis, Abdominal pain, Vomiting Forms Stand Alone Forms: [employer] Prescriptions Prescriptions: No Action cholecalciferol (vitamin D3) 50 mcg (2,000 unit) tablet 10,000 unit PO QAM Qty: 30 0RF Sutab 1.479-0.188- 0.225 gram tablet See Rx Instructions PO .COMPLEX Qty: 24 0RF Rx Instructions: TAKE FIRST DOSE AT 6 PM AND SECOND DOSE 6 HOURS PRIOR TO PROCEDURE BIN: [id number] PCN: CN GROUP: [id number] Adacel(Tdap Adolesn/Adult)(PF) 2 Lf-(2.5-5-3-5 mcg)-5Lf/0.5 mL syringe 0.5 ml IM ONCE Qty: 0.5 0RF aspirin [Jonnie Low Dose Aspirin] 81 mg tablet,delayed release (DR/EC) 81 mg PO QAM Referrals Referrals: Pro,Pablo Christine MD [Primary Care Provider] -
[2023-01-12 08:49] LABS: Basophils # (auto) 0.03 K/uL (0-0.2); Basophils % (auto) 0.3 %; Eosinophils # (auto) 0.03 K/uL (0-0.50); Eosinophils % (auto) 0.3 %; Hematocrit (blood only) 41.5 % (37.0-47.0); Hemoglobin 14.1 g/dl (12.0-16.0); Immature Granulocytes # (auto) 0.03 K/uL (0.01-0.20); Immature Granulocytes % (auto) 0.3 %; Lymphocytes # (auto) 1.29 K/uL (1.2-3.4); Lymphocytes % (auto) 11.7 %; Mean Corpuscular Hemoglobin 30.7 pg (25.0-34.0); Mean Corpuscular Volume 90.2 fL (80.0-100.0); Mean Platelet Volume 11.7 fL (9.4-12.4); Monocytes # (auto) 0.73 K/uL (0.11-0.59); Monocytes % (auto) 6.6 %; Neutrophils # (auto) 8.91 K/uL (1.40-6.50); Neutrophils % (auto) 80.8 %; Platelet Count 233 K/uL (130-400); RDW Standard Deviation 42.4 fL (36.4-46.3); White Blood Count 11.02 K/ul (4.8-10.8)
[2023-01-12 09:03] LABS: Appearance Urine Cloudy (Clear); Bacteria Urine Automated Negative (Negative); Blood Urine Negative (Negative); Color Urine Dark Yellow; Epithelial Cell Urine Auto >30 /lpf (0-5); Glucose Urine UA Negative (Negative); Ketones Urine Trace (Negative); Leukocyte Esterase Urine Trace (Negative); Nitrite Urine Negative (Negative); Protein Urine 2+ (Negative); Specific Gravity Urine 1.024 (1.000-1.030); Urobilinogen Urine Negative (Negative); pH Urine 5.5 (4.5-7.5)
[2023-01-12 09:04] LABS: Albumin Globulin Ratio 1.6 (0.9-2); Albumin Level 4.3 gm/dl (3.4-5.0); BUN Creatinine Ratio 21.7 (10-20); Bilirubin,Total 0.8 mg/dl (0.2-1.0); Calcium 8.9 mg/dl (8.6-10.3); Creatinine Clr Calc Pharmacy 86.1 ml/min; Est GFR (African American) 102.6 ml/min; Est GFR (Non-African American) 88.5 ml/min; Globulin 2.7 gm/dl (2.5-4.0); Potassium 4.1 mmol/L (3.5-5.1)
[2023-01-12 09:06] LABS: Bilirubin Urine 1+ (Negative)
[2023-01-12 09:15] LABS: Cast Urine Automated >30 /lpf (0-5); RBC Urine Automated 0-4 /hpf (0-4)
[2023-01-12 09:16] LABS: Calcium Oxalate Crystals Urine Present (None Prsent)
[2023-01-12] MEDS ORDERED: OPTIRAY 320 100ml IV ONE (10:14)
[2023-01-12] MEDS ORDERED: MoRPHine SULFATE 10 MG/ML CARP/VIAL IV STA (10:22)
--- NOTE | 2023-01-12 11:08 | CT Scan Report ---
ABDOMEN AND PELVIS CT WITH IV CONTRAST CT DOSE: 555.60 mGy.cm HISTORY: Generalized abdominal pain. TECHNIQUE: Multiaxial CT images of the abdomen and pelvis were performed following the use of intrave nous contrast. A dose lowering technique was utilized adhering to the principles of ALARA. COMPARISON STUDY: Abdomen and pelvis CT 10/04/2019. FINDINGS: The lung bases are clear. No pneumoperitoneum. No pneumatosis. No acute fractures identifie d. Artifact versus a small filling defect seen within a left lower lobe subsegmental pulmonary artery on image 13. There is a 3.3 cm cyst within the right hepatic dome, unchanged. Mild hepatic steatosis . The main portal vein is patent. The spleen, adrenal glands, and right kidney are unremarkable. Ther e is a 1.2 cm cyst within the left kidney, unchanged. There are small bilateral peripelvic renal cyst s. No hydronephrosis. Normal caliber abdominal aorta. No retroperitoneal lymphadenopathy. Status post Whipple procedure. There is edema/inflammatory change surrounding the residual pancreas consistent w ith an acute pancreatitis. There is a main pancreatic duct stent seen within the mid aspect of the re sidual pancreas. There is mild dilatation of the main pancreatic duct measuring up to 5.5 mm. There a re few punctate foci of gas within the mid abdomen on image 152 which likely resides within the adjac ent bowel. Pneumobilia is noted. No loculated fluid collections identified. No evidence for pancreati c necrosis. The bladder, uterus, and adnexa are unremarkable. Trace fluid anterior to the liver. Mild thickening of the gastric wall adjacent to the pancreas which is likely reactive. Otherwise, no monica l wall thickening or obstruction. Normal appendix. Colonic diverticulosis. No evidence for acute dive rticulitis. IMPRESSION: 1. Prior Whipple procedure. There is edema/fat stranding surrounding the residual pancreas consistent with acute pancreatitis. 2. There is a main pancreatic duct stent seen within the mid aspect of the residual pancreas. There i s mild dilatation of the main pancreatic duct measuring up to 5.5 mm. 3. Artifact versus a small filling defect seen within a left lower lobe subsegmental pulmonary artery . A small pulmonary embolus is not excluded. 4. Mild hepatic steatosis. 5. Additional findings as described above. ACT 112: Negative or not required by law. Electronically signed by: Krzysztof Bowen M.D. 01/12/2023 11:07 AM
[2023-01-12] MEDS ORDERED: LACTATED RINGER'S 1,000 ML IV ONE (12:19)
--- NOTE | 2023-01-12 12:33 | History & Physical Report ---
Date of Service January 12, 2023 Assessment & Plan (1) Acute pancreatitis: Plan: -Admit to med/tele -Currently afebrile, hemodynamically stable, and stable on RA -Severe abd pain started last night, lipase elevated today with CT evidence of acute pancreatitis -GI consulted and will follow as she was scheduled to have a colonoscopy with Dr. Neumann -Keep NPO for now, Will continue IV fludis for now with LR 1L bolus now and continue with maintenance fluids while NPO -Pain control with tylenol for midi pain and IV morphine for mod-severe pain -PRN zofran for nausea -Will obtain triglyceride levels -BL SCD's for DVT PPX, hold chemical PPX for now -Hold home aspirin for now (2) Abnormal CT scan: Plan: -CT today with mention of possible artifact vs small filling defect in the LLL, subsegmental PE could not be rule out at this time -No pleuritic chest pain, Stable on RA, hemodynamically stable, no sign of DVT in the LE's -Monitor on tele and pulse oximetry for now (3) Vitamin D deficiency: Plan: -Hold vitamin D for now Plan The patient was discussed with Dr. Villeda at the time of the admission History of Present Illness Chief Complaint: Abd pain Primary Care Provider: Pablo Sue MD Alda is a 77 year old female with a PMH significant for previous pancreatic head mass [place] [facility] [place] who presented to the [facility] ED on 01/12/23 with a chief complaint of abdominal pain. She was initially noted to be hypertensive at 187/84 otherwise vitals were stable. Labs were significant for a leukocytosis of 11 with left shift of 8.91, lipase of 293. CT of the abd/pelvis w/IV con shows findings consistent with acute pancreatitis with mild dilation of the main pancreatic duct at 5.5 mm. She was also incidentally noted to have "Artifact versus a small filling defect seen within a left lower lobe subsegmental pulmonary artery. A small pulmonary embolus is not excluded.". The ED spoke with Dr. Tran who agrees with admission and management of pancreatitis, they will follow. Prior to admission the patient was given a total of 10 mg IV morphine and 500 mL NSS. At the time of the exam the patient was lying in bed in no acute distress with her sitting bedside. She states that she has not had a previous complication after her Whipple procedure. Over the past week she noticed that she has having more gas and passing more gas. Yesterday she started to develop mild-moderate upper/central abdominal pain after lunch. After dinner she started to experience severe abdominal pain in the same locations but with radiation of the pain to her back as well. She denies fevers but was having chills. She only experienced an episode of non-bloody emesis in the ED after receiving morphine. She has been holding her daily aspirin since 01/07 in preparation for a routine colonoscopy with Dr. Neumann scheduled for tomorrow; she had not yet started her bowel prep. Her pain is currently controlled after her second dose of morphine. She is a full code and would want her to make medical decisions for her if she could not make them herself. Please refer to Dr. Villeda's attestation for any changes to the treatment plan Allergies Allergy/AdvReac Type Severity Reaction Status Date / Time No Known Drug Allergies Allergy Unknown . Verified 01/04/23 08:44 Home Medications Medication Instructions Recorded Confirmed Type aspirin 81 mg tablet,delayed 81 mg PO QAM 03/27/19 01/12/23 History release (Jonnie Low Dose Aspirin) cholecalciferol (vitamin D3) 50 10,000 unit PO QAM #30 tabs 10/19/21 01/12/23 Rx mcg (2,000 unit) tablet sodium sul 1.479 gram-potas ch See Rx Instructions PO .COMPLEX 12/31/22 01/12/23 Rx 0.188 gram-magnes sul 0.225 gram #24 tabs tablet (Sutab) Past Med/Surg History Medical History (Updated 01/12/23 @ 15:13 by Epifanio Farmer DO) Diverticulosis Mild hypertension pt reports no meds needed Vitamin D deficiency Surgical History H/O breast biopsy H/O parathyroidectomy History of surgery Whipple Procedure 2019- had a non cancerous spot on pancreas Hx of colonoscopy S/P tubal ligation Family History Father Stroke syndrome Coronary heart disease Mother Coronary heart disease Lung cancer Myocardial infarction Sister Breast cancer Unknown Breast cancer Aunt Breast cancer Denies family history of Ovarian cancer Prostate cancer Colorectal cancer Social History Smoking Status: Never smoker Second Hand Exposure: No; Do You Dip or Chew Tobacco: No; Hx Alcohol Use: Yes Alcohol type: wine Hx Substance Use: No Preferred Language: Paraguayan Communication Ability: Effective Visual Impairment: No Limitations Hearing Ability: Normal Layout Technician Required: No Beliefs That Will Affect Care: None marital status: Current Living Situation: Spouse current occupational status: retired Feels Safe at Home: Yes Safety Concerns: Feels Safe At This Time Childhood Exposure to Second-Hand Smoke: No Dental Care, Regularly: Yes Physical Activity Frequency: 3-4 Times per Week Seatbelt Use: always Sunscreen Use: Yes Assistive Devices: Glasses Physical Exam Physical Exam: Physical Exam: General: In no acute distress, stated age, well-nourished, good hygiene HEENT: Normocephalic, atraumatic, no scleral icterus, pupils around round, symmetrical, and reactive to light, moist mucus membranes, trachea midline, no thyromegaly Chest/Pulm: No respiratory distress, symmetrical chest expansion, clear breath sounds throughout Cardiac: RRR, no murmurs noted Abdomen: Negative for ascites and bruising, hypoactive bowel sounds, soft, tender to palpation in the upper and central abdominal regions without rebound tenderness Musculoskeletal: Symmetrical and without signs of acute trauma, upper and lower extremities with full ROM, no atrophy, spasticity, or flaccidity Extremities: Radial, dorsalis pedis, and posterior tibial pulses are intact and symmetrical, no edema noted in the BL LE's Skin: Warm, dry, no rashes , lesions, or scars noted Neuro: Alert and oriented to person, place, month, year, and president, no focal defects, no tremors noted Psych: No acute distress, calm and cooperative during the exam Results & Data Results & Data Vital Signs (Past 12 Hours) Vital Signs Temp Pulse Resp BP Pulse Ox O2 Del Method 01/12/23 12:08 83 22 01/12/23 12:08 169/76 H 01/12/23 12:05 87 15 01/12/23 11:45 79 19 95 01/12/23 11:30 85 17 92 01/12/23 11:30 164/79 H 01/12/23 11:15 79 16 93 01/12/23 11:00 79 17 96 01/12/23 11:00 172/82 H 01/12/23 10:45 81 17 93 01/12/23 10:38 79 24 97 01/12/23 10:38 158/89 H 01/12/23 10:30 77 24 99 01/12/23 10:18 92 H 23 95 01/12/23 10:00 73 16 95 01/12/23 09:45 76 17 96 01/12/23 09:30 77 17 96 01/12/23 09:00 84 21 96 01/12/23 08:46 79 27 H 97 01/12/23 08:47 81 01/12/23 08:32 97 Room Air 01/12/23 08:19 36.8 C 91 H 18 187/84 H 97 Room Air Laboratory Results Abnormal lab results 01/12/23 01/12/23 01/12/23 Range/Units 08:30 08:30 08:50 WBC 11.02 H (4.8-10.8) K/ul Neut # (Auto) 8.91 H (1.40-6.50) K/uL [place] # (Auto) 0.73 H (0.11-0.59) K/uL Chloride 110 H (98-107) mmol/L BUN/Creatinine Ratio 21.7 H (10-20) Glucose 126 H (70-99(Fasting)) mg/dl Alkaline Phosphatase 108 H (34-104) U/L Lipase 293 H (11-82) U/L Urine Appearance Cloudy A (Clear) Urine Protein 2+ H (Negative) Urine Ketones Trace H (Negative) Urine Bilirubin 1+ H (Negative) Ur Leukocyte Esterase Trace H (Negative) Urine WBC (Auto) 5-10 H (0-5) /hpf U Hyaline Cast (Auto) >30 H (0-5) /lpf U Epithel Cells (Auto) >30 H (0-5) /lpf Calcium Oxalate Crystal Present A (None Prsent) Granular Casts 10-20 H (0) /lpf Diagnostic Findings Abdomen/Pelvis CT 01/12/23 08:[address] WITH IV CONTRAST CT DOSE: 555.60 mGy.cm HISTORY: Generalized abdominal pain. TECHNIQUE: Multiaxial CT images of the abdomen and pelvis were performed follo wing the use of intravenous contrast. A dose lowering technique was utilized adhering to the principles of ALARA. COMPARISON STUDY: Abdomen and pelvis CT 10/04/2019. FINDINGS: The lung bases are clear. No pneumoperitoneum. No pneumatosis. No acute fractures identified. Artifact versus a small filling defect seen within a left lower lobe subsegmental pulmonary artery on image 13. There is a 3.3 cm cyst within the right hepatic dome, unchanged. Mild hepatic steatosis. The main portal vein is patent. The spleen, adrenal glands, and right kidney are unremarkable. There is a 1.2 cm cyst within the left kidney, unchanged. There are small bilateral peripelvic renal cysts. No hydronephrosis. Normal caliber abdominal aorta. No retroperitoneal lymphadenopathy. Status post Whipple procedure. There is edema/inflammatory change surrounding the residual pancreas consistent with an acute pancreatitis. There is a main pancreatic duct stent seen within the mid aspect of the residual pancreas. There is mild dilatation of the main pancreatic duct measuring up to 5.5 mm. There are few punctate foci of gas within the mid abdomen on image 152 which likely resides within the adjacent bowel. Pneumobilia is noted. No loculated fluid collections identified. No evidence for pancreatic necrosis. The bladder, uterus, and adnexa are unremarkable. Trace fluid anterior to the liver. Mild thickening of the gastric wall adjacent to the pancreas which is likely reactive. Otherwise, no bowel wall thickening or obstruction. Normal appendix. Colonic diverticulosis. No evidence for acute diverticulitis. IMPRESSION: 1. Prior Whipple procedure. There is edema/fat stranding surrounding the residual pancreas consistent with acute pancreatitis. 2. There is a main pancreatic duct stent seen within the mid aspect of the residual pancreas. There is mild dilatation of the main pancreatic duct measuring up to 5.5 mm. 3. Artifact versus a small filling defect seen within a left lower lobe subsegmental pulmonary artery. A small pulmonary embolus is not excluded. 4. Mild hepatic steatosis. 5. Additional findings as described above. ACT 112: Negative or not required by law. Electronically signed by: Krzysztof Bowen M.D. 01/12/2023 11:07 AM ECG Additional Comments: Normal sinus rhythm with sinus arrhythmia Possible Left atrial enlargement Left ventricular hypertrophy with repolarization abnormality ( R in aVL , [place] product ) Abnormal ECG When compared with ECG of 04-OCT-2019 11:31, No significant change was found Code Status & VTE Plan Code Status Full code VTE Prophylaxis Plan VTE Prophylaxis will be ordered: Yes Supervising Physician Co-Signing Physician Notes I personally saw and examined the patient. I verified all [place] points and agree with [place] PA-C with the following exceptions and/or additions: 77 year old female presents to the ER with abdominal pain, nausea, vomiting. Patient seen on lee in 257 and pain severity down to 4/10 at this time and she feels much improved and ready to eat. O/E A&Ox3, HS RRR, no murmur, Chest CTAB, Abdo mild epigastric tenderness without guarding or rebound A/P Acute pancreatitis - NSS 1L bolus given in ER, additional LR 1L bolus now then agree 100ml/hr given good resolution of symptoms. Triglyceride level normal. Advance diet to clears for breakfast then advence diet as tolerated. Given history of Whipple's procedure will as GI to consult for any further investigations. PG Care Time/CCT Total # of Minutes Spent Total Time Spent with Patient: Total time spent is greater than 50% in coordination of care (as documented) at patient's floor/unit and/or counseling patient: Coding [place] [address] INT INP/OBS CARE 2/55MIN Patient Type Established Medical Decision Making Moderate Complexity Diagnoses Acute pancreatitis K85.[address] scan R93.89 Vitamin D deficiency E55.9
--- NOTE | 2023-01-12 14:01 | Electrocardiogram Report ---
Test Reason : Blood Pressure : / mmHG Vent. Rate : 083 BPM Atrial Rate : 083 BPM P-R Int : 140 ms QRS Dur : 092 ms QT Int : 376 ms P-R-T Axes : 038 -29 069 degrees QTc Int : 441 ms Poor data quality, interpretation may be adversely affected Normal sinus rhythm with sinus arrhythmia Possible Left atrial enlargement Left ventricular hypertrophy with repolarization abnormality ( R in aVL , [place] product ) Abnormal ECG When compared with ECG of 04-OCT-2019 11:31, No significant change was found Confirmed by Jensen Alejo ([id number]) on 01/12/2023 2:01:04 PM Referred By: REFERRED SELF Confirmed By:Jensen Alejo
[2023-01-12] MEDS ORDERED: ONDANSETRON INJ 2 MG/ML 2 ML VIAL IV PRN (15:34)
[2023-01-12] MEDS: LACTATED RINGER'S 1,000 ML IV SCH (16:51)
[2023-01-12] MEDS: MoRPHine SULFATE 2 MG/ML CARP IV PRN (22:12)
[2023-01-13] MEDS: LACTATED RINGER'S 1,000 ML IV SCH ×3 (02:58→17:42)
--- NOTE | 2023-01-13 08:02 | Hospitalist Progress Note ---
Date of Service January 13, 2023 Assessment & Plan (1) Acute pancreatitis: Plan: acute onset of pain in patient s/p [place] [facility] [place] the past Lipase elevated, imaging c/w pancreatitis. No etoh use. Patient is s/p cholecystectomy LFTs wnl Admitted to med/tele GI consulted Given IVF, continued Diet advanced to full liquids this morning, tolerating well without increased pain. Lipase normalized. TRG 55 wnl GI saw this morning, advanced to low fat diet and planned for reschedule c-scope outpatient Unfortunately she had worsening pain w/ low fat and will back down to full liquids, continue IVF/supportive care and monitor overnight Added Creon per GI -- rx at d/c sent Would rec slow advancement of her diet to prevent recurrence/issues. Will check US to be safe given worsened pain (2) Abnormal CT scan: Plan: CT today with mention of possible artifact vs small filling defect in the LLL, subsegmental PE could not be rule out at this time Given no pleuritic chest pain, 96% on RA and not hypotensive, suspect artifact. No evidence for DVT in LEs Monitor for any symptoms, CTA if needed (could alternatively check ddimer given low pre-test probability) (3) Vitamin D deficiency: Plan: -Hold vitamin D for now Vit D level checked given supplementation and low at 20 --> continue supplementation and consider increasing Plan continued inpatient stay diet backed to full liquids, check Pancrease US Appreciate GI recs/assistance Admission and Anticipated Discharge Date Admission Date: January 12, 2023 Supervising Physician Co-Signing Physician Notes The patient was not seen by me. The chart was reviewed. Case discussed with ALVIN Moreira. Agree with assessment and plan Subjective eval this morning, up in chair. doing well. denies any abdominal pain at present and has been tolerating clear liquid diet. not yet seen by GI but had c-scope planned as outpatient for tomorrow. will see about having done while inpatient if possible. she states she occasionally takes tylenol if needed for pain/headache. she notes she had acute onset severe abdominal pain w/ wrapping around of her abdomen. denies any history of stones, has her GB removed. Whipple at [facility] in the past. Awaiting input from GI on consult. She is on vitamin D 10,000 daily. Discussed checking Vit D level, likely does not need that much supplementation. She does note her urine is still darkened in color this morning. While denies abdominal pain, does have LLQ tenderness to deep palpation. Diver ticulosis on CT imaging but no diverticulitis/abscess/perforation noted. Physical Exam Physical Exam: General: WD/WN female sitting up in bed, eating breakfast, NAD HEENT: head normocephalic, atraumatic, mm slightly dry, trachea midline Resp: CTA, no w/c/r, 96%on RA CV: RRR, no significant m/r/g, no pitting edema or calf tenderness GI: +BS, soft, nontender (with exception to deep palpation LLQ), no guarding to rigidity : no rodriguez MSK/Neuro: no focal deficit, no slurred speech Psych: AOx3, cooperative and pleasant Results & Data Results & Data Vital Signs (Past 12 Hours) Vital Signs Temp Pulse Pulse Resp BP Pulse Ox O2 Del Method 01/13/23 07:22 74 01/13/23 06:21 37.0 C 78 18 154/79 H 93 Room Air 01/13/23 00:02 89 01/12/23 22:36 37.0 C 83 18 176/83 H 94 Room Air 01/12/23 20:08 37.1 C 71 18 171/84 H 94 Room Air Laboratory Results 01/12/23 01/12/23 01/12/23 Range/Units 12:15 08:50 08:30 WBC (4.8-10.8) K/ul RBC (4.20-5.40) M/uL Hgb (12.0-16.0) g/dl Hct (37.0-47.0) % MCV (80.0-100.0) fL MCH (25.0-34.0) pg MCHC (32.0-36.0) g/dL RDW Std Deviation (36.4-46.3) fL RDW Coeff of Radha (11.5-14.5) % Plt Count (130-400) K/uL MPV (9.4-12.4) fL Immature Gran % (Auto) % Neut % (Auto) % Lymph % (Auto) % [place] % (Auto) % Eos % (Auto) % Baso % (Auto) % Neut # (Auto) (1.40-6.50) K/uL Lymph # (Auto) (1.2-3.4) K/uL [place] # (Auto) (0.11-0.59) K/uL Eos # (Auto) (0-0.50) K/uL Baso # (Auto) (0-0.2) K/uL Immature Gran # (Auto) (0.01-0.20) K/uL Sodium 140 (136-145) mmol/L Potassium 4.1 (3.5-5.1) mmol/L Chloride 110 H (98-107) mmol/L Carbon Dioxide 24 (21-32) mmol/L Anion Gap 6 (3-11) BUN 13 (6-23) mg/dl Creatinine 0.60 (0.6-1.2) mg/dl Est Cr Clr Drug Dosing 86.1 ml/min Est GFR ( Amer) 102.6 ml/min Est GFR (Non-Af Amer) 88.5 ml/min BUN/Creatinine Ratio 21.7 H (10-20) Glucose 126 H (70-99(Fasting)) mg/dl Calcium 8.9 (8.6-10.3) mg/dl Total Bilirubin 0.8 (0.2-1.0) mg/dl AST 17 (13-39) U/L ALT 23 (7-52) U/L Alkaline Phosphatase 108 H (34-104) U/L Total Protein 7.0 (6.0-8.3) gm/dl Albumin 4.3 (3.4-5.0) gm/dl Globulin 2.7 (2.5-4.0) gm/dl Albumin/Globulin Ratio 1.6 (0.9-2) Triglycerides 55 (0-150) mg/dl Lipase 293 H (11-82) U/L Urine Color Dark Yellow Urine Appearance Cloudy A (Clear) Urine pH 5.5 (4.5-7.5) Ur Specific [place] 1.024 (1.000-1.030) Urine Protein 2+ H (Negative) Urine Glucose (UA) Negative (Negative) Urine Ketones Trace H (Negative) Urine Blood Negative (Negative) Urine Nitrite Negative (Negative) Urine Bilirubin 1+ H (Negative) Urine Urobilinogen Negative (Negative) Ur Leukocyte Esterase Trace H (Negative) Urine WBC (Auto) 5-10 H (0-5) /hpf Urine RBC (Auto) 0-4 (0-4) /hpf U Hyaline Cast (Auto) >30 H (0-5) /lpf U Epithel Cells (Auto) >30 H (0-5) /lpf Urine Bacteria (Auto) Negative (Negative) Urine Crystals Not Reportable Calcium Oxalate Crystal Present A (None Prsent) Granular Casts 10-20 H (0) /lpf SARS-CoV-2, RNA, NAAT NEGATIVE (NEGATIVE) 01/12/23 Range/Units 08:30 WBC 11.02 H (4.8-10.8) K/ul RBC 4.60 (4.20-5.40) M/uL Hgb 14.1 (12.0-16.0) g/dl Hct 41.5 (37.0-47.0) % MCV 90.2 (80.0-100.0) fL MCH 30.7 (25.0-34.0) pg MCHC 34.0 (32.0-36.0) g/dL RDW Std Deviation 42.4 (36.4-46.3) fL RDW Coeff of Radha 13.0 (11.5-14.5) % Plt Count 233 (130-400) K/uL MPV 11.7 (9.4-12.4) fL Immature Gran % (Auto) 0.3 % Neut % (Auto) 80.8 % Lymph % (Auto) 11.7 % [place] % (Auto) 6.6 % Eos % (Auto) 0.3 % Baso % (Auto) 0.3 % Neut # (Auto) 8.91 H (1.40-6.50) K/uL Lymph # (Auto) 1.29 (1.2-3.4) K/uL [place] # (Auto) 0.73 H (0.11-0.59) K/uL Eos # (Auto) 0.03 (0-0.50) K/uL Baso # (Auto) 0.03 (0-0.2) K/uL Immature Gran # (Auto) 0.03 (0.01-0.20) K/uL Sodium (136-145) mmol/L Potassium (3.5-5.1) mmol/L Chloride (98-107) mmol/L Carbon Dioxide (21-32) mmol/L Anion Gap (3-11) BUN (6-23) mg/dl Creatinine (0.6-1.2) mg/dl Est Cr Clr Drug Dosing ml/min Est GFR ( Amer) ml/min Est GFR (Non-Af Amer) ml/min BUN/Creatinine Ratio (10-20) Glucose (70-99(Fasting)) mg/dl Calcium (8.6-10.3) mg/dl Total Bilirubin (0.2-1.0) mg/dl AST (13-39) U/L ALT (7-52) U/L Alkaline Phosphatase (34-104) U/L Total Protein (6.0-8.3) gm/dl Albumin (3.4-5.0) gm/dl Globulin (2.5-4.0) gm/dl Albumin/Globulin Ratio (0.9-2) Triglycerides (0-150) mg/dl Lipase (11-82) U/L Urine Color Urine Appearance (Clear) Urine pH (4.5-7.5) Ur Specific [place] (1.000-1.030) Urine Protein (Negative) Urine Glucose (UA) (Negative) Urine Ketones (Negative) Urine Blood (Negative) Urine Nitrite (Negative) Urine Bilirubin (Negative) Urine Urobilinogen (Negative) Ur Leukocyte Esterase (Negative) Urine WBC (Auto) (0-5) /hpf Urine RBC (Auto) (0-4) /hpf U Hyaline Cast (Auto) (0-5) /lpf U Epithel Cells (Auto) (0-5) /lpf Urine Bacteria (Auto) (Negative) Urine Crystals Calcium Oxalate Crystal (None Prsent) Granular Casts (0) /lpf SARS-CoV-2, RNA, NAAT (NEGATIVE) Diagnostic Findings Abdomen/Pelvis CT 01/12/23 08:[address] WITH IV CONTRAST CT DOSE: 555.60 mGy.cm HISTORY: Generalized abdominal pain. TECHNIQUE: Multiaxial CT images of the abdomen and pelvis were performed fol lowing the use of intravenous contrast. A dose lowering technique was utilized adhering to the principles of ALARA. COMPARISON STUDY: Abdomen and pelvis CT 10/04/2019. FINDINGS: The lung bases are clear. No pneumoperitoneum. No pneumatosis. No acute fractures identified. Artifact versus a small filling defect seen within a left lower lobe subsegmental pulmonary artery on image 13. There is a 3.3 cm cyst within the right hepatic dome, unchanged. Mild hepatic steatosis. The main portal vein is patent. The spleen, adrenal glands, and right kidney are unremarkable. There is a 1.2 cm cyst within the left kidney, unchanged. There are small bilateral peripelvic renal cysts. No hydronephrosis. Normal caliber abdominal aorta. No retroperitoneal lymphadenopathy. Status post Whipple procedure. There is edema/inflammatory change surrounding the residual pancreas consistent with an acute pancreatitis. There is a main pancreatic duct stent seen within the mid aspect of the residual pancreas. There is mild dilatation of the main pancreatic duct measuring up to 5.5 mm. There are few punctate foci of gas within the mid abdomen on image 152 which likely resides within the adjacent bowel. Pneumobilia is noted. No loculated fluid collections identified. No evidence for pancreatic necrosis. The bladder, uterus, and adnexa are unremarkable. Trace fluid anterior to the liver. Mild thickening of the gastric wall adjacent to the pancreas which is likely reactive. Otherwise, no bowel wall thickening or obstruction. Normal appendix. Colonic diverticulosis. No evidence for acute diverticulitis. IMPRESSION: 1. Prior Whipple procedure. There is edema/fat stranding surrounding the residual pancreas consistent with acute pancreatitis. 2. There is a main pancreatic duct stent seen within the mid aspect of the residual pancreas. There is mild dilatation of the main pancreatic duct measuring up to 5.5 mm. 3. Artifact versus a small filling defect seen within a left lower lobe subsegmental pulmonary artery. A small pulmonary embolus is not excluded. 4. Mild hepatic steatosis. 5. Additional findings as described above. ACT 112: Negative or not required by law. Electronically signed by: Krzysztof Bowen M.D. 01/12/2023 11:07 AM PG Care Time/CCT Total # of Minutes Spent Total Time Spent with Patient: Total time spent is greater than 50% in coordination of care (as documented) at patient's floor/unit and/or counseling patient: Coding Level of Care Code 43630 SUB INP/OBS CARE 2/35MIN Diagnoses Acute pancreatitis K85.[address] scan R93.89 Vitamin D deficiency E55.9
[2023-01-13 08:19] LABS: Basophils # (auto) 0.02 K/uL (0-0.2); Basophils % (auto) 0.3 %; Eosinophils # (auto) 0.05 K/uL (0-0.50); Eosinophils % (auto) 0.7 %; Hematocrit (blood only) 37.7 % (37.0-47.0); Hemoglobin 12.5 g/dl (12.0-16.0); Immature Granulocytes # (auto) 0.03 K/uL (0.01-0.20); Immature Granulocytes % (auto) 0.4 %; Lymphocytes # (auto) 1.02 K/uL (1.2-3.4); Lymphocytes % (auto) 13.3 %; Mean Corpuscular Hemoglobin 30.5 pg (25.0-34.0); Mean Corpuscular Hgb Conc 33.2 g/dL (32.0-36.0); Mean Platelet Volume 11.6 fL (9.4-12.4); Monocytes # (auto) 0.67 K/uL (0.11-0.59); Monocytes % (auto) 8.7 %; Neutrophils % (auto) 76.6 %; Platelet Count 182 K/uL (130-400); RDW Coefficient of Variation 13.2 % (11.5-14.5); White Blood Count 7.69 K/ul (4.8-10.8)
[2023-01-13 08:26] LABS: Albumin Globulin Ratio 1.5 (0.9-2); Albumin Level 3.7 gm/dl (3.4-5.0); BUN Creatinine Ratio 12.8 (10-20); Bilirubin,Total 1.2 mg/dl (0.2-1.0); Calcium 8.3 mg/dl (8.6-10.3); Creatinine Clr Calc Pharmacy 114.5 ml/min; Est GFR (African American) 111.2 ml/min; Est GFR (Non-African American) 95.9 ml/min; Globulin 2.5 gm/dl (2.5-4.0); Magnesium 1.6 mg/dl (1.7-2.4); Potassium 3.7 mmol/L (3.5-5.1); Total Protein 6.2 gm/dl (6.0-8.3)
[2023-01-13 09:01] LABS: INR 1.1 (0.9-1.1); Prothrombin Time 11.7 Seconds (9.0-12.0)
[2023-01-13] MEDS: MAGNESIUM SULFATE / D5W 1 GM/100 ML BAG IV SCH ×2 (09:59→11:49)
--- NOTE | 2023-01-13 10:56 | Gastrointestinal Consultation ---
Date of Consultation January 13, 2023 Assessment & Plan (1) Acute pancreatitis: (2) History of surgery: Plan -Advance to low fat diet. -Add pancreatic enzyme replacement of 500 units/kg/dose. Therefore ordered 3 capsules prior to meals per hospital formulary. -Discussed with Brisa Chaes PA-C. If no returning pain with diet advancement, stable for discharge on digestive enzymes from GI perspective. -Screening colonoscopy will be canceled for tomorrow and deferred for a minimum of 2 months and rescheduled by our office. -Continue supportive care per primary team. Thank you for allowing us to participate in the care of this patient. If you have any questions or concerns, please do not hesitate to contact us. Supervising Physician Co-Signing Physician Notes Agree with KELLY Vital as above Abd: Soft, tender epigastric area, ND, +BS Continue current therapy and supportive care History of Present Illness Reason for Consultation: Acute Pancreatitis Requesting Physician: [place] PA-C Attending Physician: Rinku Yoo MD History of Present Illness Patient is a 77 y.o. 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 She was managed supportively with antiemetics, analgesics and IV fluid resuscitation. Lipase has since normalized from 293 to 56. Leukocytosis has resolved. Tolerating clear liquid diet. No further nausea or abdominal pain. GI has been consulted as she is scheduled for outpatient colonoscopy with Dr. Neumann tomorrow and assistance with medical management. Allergies Allergy/AdvReac Type Severity Reaction Status Date / Time No Known Drug Allergies Allergy Unknown . Verified 01/04/23 08:44 Home Medications Medication Instructions Recorded Confirmed Type aspirin 81 mg tablet,delayed 81 mg PO QAM 03/27/19 01/12/23 History release (Jonnie Low Dose Aspirin) cholecalciferol (vitamin D3) 50 10,000 unit PO QAM #30 tabs 10/19/21 01/12/23 Rx mcg (2,000 unit) tablet sodium sul 1.479 gram-potas ch See Rx Instructions PO .COMPLEX 12/31/22 01/12/23 Rx 0.188 gram-magnes sul 0.225 gram #24 tabs tablet (Sutab) quqjrb-[id number] 3 cap PO AC #90 caps 01/13/23 Rx 16,000-57,500-60,500 unit capsule,delayed rel (Pertzye) Patient History Medical History Diverticulosis Mild hypertension pt reports no meds needed Vitamin D deficiency Surgical History H/O breast biopsy H/O parathyroidectomy History of surgery Whipple Procedure 2019- had a non cancerous spot on pancreas Hx of colonoscopy S/P tubal ligation Family History Father Stroke syndrome Coronary heart disease Mother Coronary heart disease Lung cancer Myocardial infarction Sister Breast cancer Unknown Breast cancer Aunt Breast cancer Denies family history of Ovarian cancer Prostate cancer Colorectal cancer Social History Smoking Status: Never smoker Second Hand Exposure: No; Do You Dip or Chew Tobacco: No; Hx Alcohol Use: Yes Alcohol type: wine Hx Substance Use: No Preferred Language: Tajik Communication Ability: Effective Visual Impairment: No Limitations Hearing Ability: Normal Sand Drier Required: No Beliefs That Will Affect Care: None marital status: Current Living Situation: Spouse current occupational status: retired Feels Safe at Home: Yes Childhood Exposure to Second-Hand Smoke: No Dental Care, Regularly: Yes Physical Activity Frequency: 3-4 Times per Week Seatbelt Use: always Sunscreen Use: Yes Assistive Devices: None Review of Systems Review of Systems: All systems reviewed & are unremarkable except as noted in HPI & below Physical Exam Constitutional: WD/WN, vitals as above Eyes: EOM intact bilaterally Neck: normal appearance Respiratory: normal respiratory effort, lungs clear to auscultation Cardiovascular: Rate/Rhythm: regular rate and regular rhythm Heart Sounds: no gallop and no murmur Gastrointestinal (Abdomen): normal bowel sounds, soft, nontender, no hepatosplenomegaly Inspection/Auscultation: abdomen not distended Musculoskeletal: Extremities: no cyanosis no lower extremity edema Skin: no rashes, warm and dry Neurologic: moves all extremities Psychiatric: A+Ox3, euthymic affect Results & Data Vital Signs (Past 12 Hours) Vital Signs Temp Pulse Pulse Resp BP Pulse Ox O2 Del Method 01/13/23 10:45 37.2 C 71 18 149/81 H 96 Room Air 01/13/23 07:22 74 01/13/23 06:21 37.0 C 78 18 154/79 H 93 Room Air 01/13/23 00:02 89 Diagnostic Findings Laboratory Results WBC 7.69 K/ul (4.8-10.8) 01/13/23 07:47 RBC 4.10 M/uL (4.20-5.40) L 01/13/23 07:47 Hgb 12.5 g/dl (12.0-16.0) 01/13/23 07:47 Hct 37.7 % (37.0-47.0) 01/13/23 07:47 MCV 92.0 fL (80.0-100.0) 01/13/23 07:47 MCH 30.5 pg (25.0-34.0) 01/13/23 07:47 MCHC 33.2 g/dL (32.0-36.0) 01/13/23 07:47 RDW Std Deviation 44.0 fL (36.4-46.3) 01/13/23 07:47 RDW Coeff of Radha 13.2 % (11.5-14.5) 01/13/23 07:47 Plt Count 182 K/uL (130-400) 01/13/23 07:47 MPV 11.6 fL (9.4-12.4) 01/13/23 07:47 Immature Gran % (Auto) 0.4 % 01/13/23 07:47 Neut % (Auto) 76.6 % 01/13/23 07:47 Lymph % (Auto) 13.3 % 01/13/23 07:47 [place] % (Auto) 8.7 % 01/13/23 07:47 Eos % (Auto) 0.7 % 01/13/23 07:47 Baso % (Auto) 0.3 % 01/13/23 07:47 Neut # (Auto) 5.90 K/uL (1.40-6.50) 01/13/23 07:47 Lymph # (Auto) 1.02 K/uL (1.2-3.4) L 01/13/23 07:47 Deuel # (Auto) 0.67 K/uL (0.11-0.59) H 01/13/23 07:47 Eos # (Auto) 0.05 K/uL (0-0.50) 01/13/23 07:47 Baso # (Auto) 0.02 K/uL (0-0.2) 01/13/23 07:47 Immature Gran # (Auto) 0.03 K/uL (0.01-0.20) 01/13/23 07:47 PT 11.7 Seconds (9.0-12.0) 01/13/23 07:47 INR 1.1 (0.9-1.1) 01/13/23 07:47 Sodium 140 mmol/L (136-145) 01/13/23 07:47 Potassium 3.7 mmol/L (3.5-5.1) 01/13/23 07:47 Chloride 106 mmol/L (98-107) 01/13/23 07:47 Carbon Dioxide 28 mmol/L (21-32) 01/13/23 07:47 Anion Gap 6 (3-11) 01/13/23 07:47 BUN 6 mg/dl (6-23) 01/13/23 07:47 Creatinine 0.47 mg/dl (0.6-1.2) L 01/13/23 07:47 Est Cr Clr Drug Dosing 114.5 ml/min 01/13/23 07:47 Est GFR ( Amer) 111.2 ml/min 01/13/23 07:47 Est GFR (Non-Af Amer) 95.9 ml/min 01/13/23 07:47 BUN/Creatinine Ratio 12.8 (10-20) 01/13/23 07:47 Glucose 94 mg/dl (70-99(Fasting)) 01/13/23 07:47 Calcium 8.3 mg/dl (8.6-10.3) L 01/13/23 07:47 Magnesium 1.6 mg/dl (1.7-2.4) L 01/13/23 07:47 Total Bilirubin 1.2 mg/dl (0.2-1.0) H 01/13/23 07:47 AST 14 U/L (13-39) 01/13/23 07:47 ALT 19 U/L (7-52) 01/13/23 07:47 Alkaline Phosphatase 99 U/L (34-104) 01/13/23 07:47 Total Protein 6.2 gm/dl (6.0-8.3) 01/13/23 07:47 Albumin 3.7 gm/dl (3.4-5.0) 01/13/23 07:47 Globulin 2.5 gm/dl (2.5-4.0) 01/13/23 07:47 Albumin/Globulin Ratio 1.5 (0.9-2) 01/13/23 07:47 Triglycerides 55 mg/dl (0-150) 01/12/23 08:30 Lipase 56 U/L (11-82) 01/13/23 07:47 Urine Color Dark Yellow 01/12/23 08:50 Urine Appearance Cloudy (Clear) A 01/12/23 08:50 Urine pH 5.5 (4.5-7.5) 01/12/23 08:50 Ur Specific [place] 1.024 (1.000-1.030) 01/12/23 08:50 Urine Protein 2+ (Negative) H 01/12/23 08:50 Urine Glucose (UA) Negative (Negative) 01/12/23 08:50 Urine Ketones Trace (Negative) H 01/12/23 08:50 Urine Blood Negative (Negative) 01/12/23 08:50 Urine Nitrite Negative (Negative) 01/12/23 08:50 Urine Bilirubin 1+ (Negative) H 01/12/23 08:50 Urine Urobilinogen Negative (Negative) 01/12/23 08:50 Ur Leukocyte Esterase Trace (Negative) H 01/12/23 08:50 Urine WBC (Auto) 5-10 /hpf (0-5) H 01/12/23 08:50 Urine RBC (Auto) 0-4 /hpf (0-4) 01/12/23 08:50 U Hyaline Cast (Auto) >30 /lpf (0-5) H 01/12/23 08:50 U Epithel Cells (Auto) >30 /lpf (0-5) H 01/12/23 08:50 Urine Bacteria (Auto) Negative (Negative) 01/12/23 08:50 Urine Crystals Not Reportable 01/12/23 08:50 Calcium Oxalate Crystal Present (None Prsent) A 01/12/23 08:50 Granular Casts 10-20 /lpf (0) H 01/12/23 08:50 SARS-CoV-2, RNA, NAAT NEGATIVE (NEGATIVE) 01/12/23 12:15 Impressions Abdomen/Pelvis CT 01/12/23 08:[address] WITH IV CONTRAST CT DOSE: 555.60 mGy.cm HISTORY: Generalized abdominal pain. TECHNIQUE: Multiaxial CT images of the abdomen and pelvis were performed following the use of intravenous contrast. A dose lowering technique was utilized adhering to the principles of ALARA. COMPARISON STUDY: Abdomen and pelvis CT 10/04/2019. FINDINGS: The lung bases are clear. No pneumoperitoneum. No pneumatosis. No acute fractures identified. Artifact versus a small filling defect seen within a left lower lobe subsegmental pulmonary artery on image 13. There is a 3.3 cm cyst within the right hepatic dome, unchanged. Mild hepatic steatosis. The main portal vein is patent. The spleen, adrenal glands, and right kidney are unremarkable. There is a 1.2 cm cyst within the left kidney, unchanged. There are small bilateral peripelvic renal cysts. No hydronephrosis. Normal caliber abdominal aorta. No retroperitoneal lymphadenopathy. Status post Whipple procedure. There is edema/inflammatory change surrounding the residual pancreas consistent with an acute pancreatitis. There is a main pancreatic duct stent seen within the mid aspect of the residual pancreas. There is mild dilatation of the main pancreatic duct measuring up to 5.5 mm. There are few punctate foci of gas within the mid abdomen on image 152 which likely resides within the adjacent bowel. Pneumobilia is noted. No loculated fluid collections identified. No evidence for pancreatic necrosis. The bladder, uterus, and adnexa are unremarkable. Trace fluid anterior to the liver. Mild thickening of the gastric wall adjacent to the pancreas which is likely reactive. Otherwise, no bowel wall thickening or obstruction. Normal appendix. Colonic diverticulosis. No evidence for acute diverticulitis. IMPRESSION: 1. Prior Whipple procedure. There is edema/fat stranding surrounding the residual pancreas consistent with acute pancreatitis. 2. There is a main pancreatic duct stent seen within the mid aspect of the residual pancreas. There is mild dilatation of the main pancreatic duct measuring up to 5.5 mm. 3. Artifact versus a small filling defect seen within a left lower lobe subsegmental pulmonary artery. A small pulmonary embolus is not excluded. 4. Mild hepatic steatosis. 5. Additional findings as described above. ACT 112: Negative or not required by law. Electronically signed by: Krzysztof Bowen M.D. 01/12/2023 11:07 AM PG Care Time/CCT Total # of Minutes Spent Total Time Spent with Patient: Total time spent is greater than 50% in coordination of care (as documented) at patient's floor/unit and/or counseling patient: Coding Level of Care Code 94453 INT INP/OBS CARE 3/75MIN Diagnoses Acute pancreatitis K85.90 History of surgery Z98.890
--- NOTE | 2023-01-13 12:12 | Discharge Summary ---
Date of Service January 13, 2023 Admission HPI Per Admitting Provider Alda is a 77 year old female with a PMH significant for previous pancreatic head mass [place] [facility] [place] who presented to the [facility] ED on 01/12/23 with a chief complaint of abdominal pain. She was initially noted to be hypertensive at 187/84 otherwise vitals were stable. Labs were significant for a leukocytosis of 11 with left shift of 8.91, lipase of 293. CT of the abd/pelvis w/IV con shows findings consistent with acute pancreatitis with mild dilation of the main pancreatic duct at 5.5 mm. She was also incidentally noted to have "Artifact versus a small filling defect seen within a left lower lobe subsegmental pulmonary artery. A small pulmonary embolus is not excluded.". The ED spoke with Dr. Tran who agrees with admission and management of pancreatitis, they will follow. Prior to admission the patient was given a total of 10 mg IV morphine and 500 mL NSS. At the time of the exam the patient was lying in bed in no acute distress with her sitting bedside. She states that she has not had a previous complication after her Whipple procedure. Over the past week she noticed that she has having more gas and passing more gas. Yesterday she started to develop mild-moderate upper/central abdominal pain after lunch. After dinner she started to experience severe abdominal pain in the same locations but with radiation of the pain to her back as well. She denies fevers but was having chills. She only experienced an episode of non-bloody emesis in the ED after receiving morphine. She has been holding her daily aspirin since 01/07 in preparation for a routine colonoscopy with Dr. Neumann scheduled for tomorrow; she had not yet started her bowel prep. Her pain is currently controlled after her second dose of morphine. She is a full code and would want her to make medical decisions for her if she could not make them herself. Please refer to Dr. Villeda's attestation for any changes to the treatment plan Discharge Data Allergies Allergy/AdvReac Type Severity Reaction Status Date / Time No Known Drug Allergies Allergy Unknown . Verified 01/04/23 08:44 Consultations 01/12/23 12:15 ED Decision to Admit Stat 01/12/23 12:53 Consult Gastroenterology Routine Ordered Studies 01/12/23 08:29 CT Abd and Pelvis [CT abd pelvis IV con only] Stat Hospital Course (1) Acute pancreatitis: -Admit to med/tele -Currently afebrile, hemodynamically stable, and stable on RA -Severe abd pain started last night, lipase elevated today with CT evidence of acute pancreatitis -GI consulted and will follow as she was scheduled to have a colonoscopy with Dr. Neumann -Keep NPO for now, Will continue IV fludis for now with LR 1L bolus now and continue with maintenance fluids while NPO -Pain control with tylenol for midi pain and IV morphine for mod-severe pain -PRN zofran for nausea -Will obtain triglyceride levels -- 55, wnl -BL SCD's for DVT PPX, hold chemical PPX for now -Hold home aspirin for now 01/13 -- On clear liquid diet, GI consultation appreciated Labs pending from this morning (2) Abnormal CT scan: -CT today with mention of possible artifact vs small filling defect in the LLL, subsegmental PE could not be rule out at this time -No pleuritic chest pain, Stable on RA, hemodynamically stable, no sign of DVT i n the LE's -Monitor on tele and pulse oximetry for now (3) Vitamin D deficiency: -Hold vitamin D for now Plan The patient was discussed with Dr. Villeda at the time of the admission Discharge Plan Discharge Items Reason For Visit: SEVERE ABD PAIN, CHILLS Follow-up/Referrals: Pro,Pbalo Christine MD [Primary Care Provider] - Medications and DC Order Prescriptions: No Action cholecalciferol (vitamin D3) 50 mcg (2,000 unit) tablet 10,000 unit PO QAM Qty: 30 0RF Sutab 1.479-0.188- 0.225 gram tablet See Rx Instructions PO .COMPLEX Qty: 24 0RF Rx Instructions: TAKE FIRST DOSE AT 6 PM AND SECOND DOSE 6 HOURS PRIOR TO PROCEDURE BIN: [id number] PCN: [id number] GROUP: [id number] Adacel(Tdap Adolesn/Adult)(PF) 2 Lf-(2.5-5-3-5 mcg)-5Lf/0.5 mL syringe 0.5 ml IM ONCE Qty: 0.5 0RF aspirin [Jonnie Low Dose Aspirin] 81 mg tablet,delayed release (DR/EC) 81 mg PO QAM Admission Data Admit Date/Time: 01/12/23 12:32 Attending Provider: Rinku Yoo Admit Provider: Bro Villeda Primary Care Provider: Pablo Sue Other Providers: Bro Villeda ; Jose Neumann Coding Diagnoses Acute pancreatitis K85.[address] scan R93.89 Vitamin D deficiency E55.9
[2023-01-13] MEDS: PANCREAZE (LIPASE 16,800U) CAP PO SCH ×2 (12:34→18:15)
[2023-01-13] MEDS: MoRPHine SULFATE 2 MG/ML CARP IV PRN ×2 (13:36→17:42)
[2023-01-13] MEDS ORDERED: MoRPHine SULFATE 2 MG/ML CARP IV PRN (17:57)
[2023-01-13] MEDS ORDERED: MoRPHine SULFATE 2 MG/ML CARP IV STA (18:09)
--- NOTE | 2023-01-13 18:20 | Communication Note ---
Date of Service: January 13, 2023 Notified by RN of worsening abdominal pain after low fat diet for lunch. Discussed w/ GI and backed to full liquids however developed worsening abdominal pain in epigastric region w/o radiation but similar to presentation. Eval w/ David at bedside. Patient just received morphine for pain and reports feeling better w/o need for additional stat dose now as ordered. Reported passing some gas but no BM. Abdomen soft but tender to palpation epigastric region without guarding/rigidity Decision to back down to NPO, resume IVF LR @ 100cc/hr overnight and possible trial clear liquids for breakfast with SLOW advancement of diet to prevent recurrance. Afebrile. NO leukocytosis. US pancreas pending for eval abscess, ordered KUB x 1 now for eval possible ileus given hypoactive BS LLQ but has BS elsewhere. inquiring if ambulation would assist -- encouraged ambulation as tolerated to assist w bowel movement as well.
--- NOTE | 2023-01-13 18:51 | XRay Report ---
KUB HISTORY: Lower abdominal pain. eval ileus/obstruction COMPARISON: Abdomen and pelvis CT 01/12/2023. FINDINGS: Mildly dilated gas-filled loops of large and small bowel seen throughout the abdomen. This favors a mild ileus. Surgical clips within the right upper quadrant consistent with a prior cholecyst ectomy and Whipple procedure. A main pancreatic duct stent is again noted. No renal calculi. No uret eral calculi. No pneumoperitoneum or pneumatosis. IMPRESSION: Mildly dilated gas-filled loops of large and small bowel seen within the abdomen. This favors a mild ileus. A low-grade partial bowel obstruction could also have a similar appearance in the appropriate clinical setting but is considered less likely. ACT 112: Negative or not required by law. Electronically signed by: Krzysztof Bowen M.D. 01/13/2023 6:50 PM
--- NOTE | 2023-01-13 20:21 | Ultrasound Report ---
Exam(s): US OTHER pancreas EXAM: US Abdomen Limited, pancreas CLINICAL HISTORY: Reason for exam: worsened abd pain, eval abscess, pancreatits. TECHNIQUE: Real-time ultrasound of the right lower quadrant with image documentation. COMPARISON: No relevant prior studies available. FINDINGS Status post Whipple. Heterogeneous pancreas. Prominent main pancreatic duct measures 6 mm. Indwelling stent. Consider CT scan correlation. Electronically signed by: Haim Pinedo MD 01/13/23 20:20 PM
[2023-01-14 08:06] LABS: Basophils # (auto) 0.02 K/uL (0-0.2); Basophils % (auto) 0.3 %; Eosinophils # (auto) 0.12 K/uL (0-0.50); Eosinophils % (auto) 1.9 %; Hematocrit (blood only) 35.8 % (37.0-47.0); Immature Granulocytes # (auto) 0.02 K/uL (0.01-0.20); Immature Granulocytes % (auto) 0.3 %; Lymphocytes # (auto) 1.32 K/uL (1.2-3.4); Lymphocytes % (auto) 20.4 %; Mean Corpuscular Hemoglobin 30.3 pg (25.0-34.0); Mean Corpuscular Hgb Conc 33.5 g/dL (32.0-36.0); Mean Corpuscular Volume 90.4 fL (80.0-100.0); Mean Platelet Volume 11.6 fL (9.4-12.4); Monocytes # (auto) 0.57 K/uL (0.11-0.59); Monocytes % (auto) 8.8 %; Neutrophils # (auto) 4.42 K/uL (1.40-6.50); Neutrophils % (auto) 68.3 %; Platelet Count 169 K/uL (130-400); RDW Coefficient of Variation 12.9 % (11.5-14.5); Red Blood Count 3.96 M/uL (4.20-5.40); White Blood Count 6.47 K/ul (4.8-10.8)
[2023-01-14 08:36] LABS: Albumin Globulin Ratio 1.4 (0.9-2); Albumin Level 3.4 gm/dl (3.4-5.0); BUN Creatinine Ratio 19.1 (10-20); Bilirubin,Total 0.9 mg/dl (0.2-1.0); Calcium 8.2 mg/dl (8.6-10.3); Creatinine Clr Calc Pharmacy 114.7 ml/min; Est GFR (African American) 111.2 ml/min; Est GFR (Non-African American) 95.9 ml/min; Globulin 2.4 gm/dl (2.5-4.0); Potassium 3.5 mmol/L (3.5-5.1); Total Protein 5.8 gm/dl (6.0-8.3)
--- NOTE | 2023-01-14 08:37 | Hospitalist Progress Note ---
Date of Service January 14, 2023 Assessment & Plan (1) Acute pancreatitis: Plan: acute onset of pain in [place] [facility] [place] Lipase elevated, imaging c/w pancreatitis. No etoh use. Patient is s/p cholecystectomy. LFTs wnl GI consulted Diet advanced to full liquids AM 5/4, was tolerating well without pain but was advanced directly to low fat diet for lunch by GI and developed worsening pain. Obtained KUB/US pancreas for eval --> possible ileus vs partial SBO and made NPO, resumed IVF. General surgery consulted Lipase normalized on repeat, 13 this morning. TRG 55 wnl Has been afebrile, WBC wnl Repeat KUB this morning w/ improvement. Passing gas, no n/v. No BM yet Discussed w/ GI/surgery --> will trial clear liquids for dinner and plan to advance diet slowly to prevent recurrance Creon added by GI -- continue Monitor advancement of diet on clear liquids for any worsening pain Monitor labs in AM (2) Abnormal CT scan: Plan: CT today with mention of possible artifact vs small filling defect in the LLL, subsegmental PE could not be rule out at this time Given no pleuritic chest pain, 96% on RA and not hypotensive, suspect artifact. No evidence for DVT in LEs Monitor for any symptoms, CTA if needed (could alternatively check ddimer given low pre-test probability) --> checking Ddimer given pain w/ inspiration but ?if was referred from her pancreas If Ddimer elevated will need to complete CTA to definitively r/o DVT (3) Vitamin D deficiency: Plan: -Hold vitamin D for now Vit D level checked given supplementation and low at 20 --> continue supplementation and consider increasing (4) Murmur: Plan: slight murmur on exam, c/w mild Not volume overloaded at present, denied any symptoms of syncope/angina/dyspnea but did have a possible syncopal type episode over a year ago. Unclear if maybe was dehydrated at that point or not but discussed to monitor for any symptoms and would check ECHO if issues. Otherwise can be followed up outpatient (5) Hypomagnesemia: Plan: checked w/ cramping 01/13, low at 1.6 and IV replacement ordered Repeat wnl at 2 Plan NPO for this morning --> will trial clear liquid diet for supper. continue IVF for now Admission and Anticipated Discharge Date Admission Date: January 12, 2023 Supervising Physician Co-Signing Physician Notes The patient was not seen by me. The chart was reviewed. Case discussed with ALVIN Moreira. Agree with assessment and plan Subjective eval this morning, doing well. reporting no abdominal pain but is slightly tender on palpation passing gas but no BM. discussed awaiting surgery eval but likely keeping NPO for today and advancement to clears tomorrow. Does have a slight murmur on exam, not previously appreciated. Faint murmur c/w , but discussed any symptoms of syncope/angina/dyspnea. She reports she had some sharp pains w/ inspiration now that she thinks about it but thought it was referred from her abdominal pain. Will check ddimmer given low pre-test probability to r/o any PE at present. Denies any fevr/chills, no CP/SOb at present. No nausea or vomiting. Questions/concerns addressed at this time. Physical Exam Physical Exam: General: WD/WN female sitting up chair, NAD, reading a book HEENT: head normocephalic, atraumatic, mmm, trachea midline Resp: CTA, no w/c/r, 96%on RA CV: RRR, faint systolic murmur, no rub/gallop, no pitting edema/calf tenderness GI: +BS, soft, nontender with exception epigastric/LLQ tenderness with deep palpation, no guarding or rigidity : no rodriguez MSK/Neuro: no focal deficit, no slurred speech Psych: AOx3, cooperative and pleasant Results & Data Results & Data Vital Signs (Past 12 Hours) Vital Signs Temp Pulse Pulse Pulse Resp BP BP 01/14/23 08:04 36.6 C 69 12 144/86 H 01/14/23 05:40 36.8 C 68 18 172/82 H 01/14/23 01:52 81 01/13/23 23:19 37.2 C 79 18 156/71 H Pulse Ox O2 Del Method 01/14/23 08:04 97 Room Air 01/14/23 05:40 94 Room Air 01/14/23 01:52 01/13/23 23:19 92 Room Air Laboratory Results 01/14/23 01/14/23 01/14/23 Range/Units 10:45 07:43 07:43 WBC 6.47 (4.8-10.8) K/ul RBC 3.96 L (4.20-5.40) M/uL Hgb 12.0 (12.0-16.0) g/dl Hct 35.8 L (37.0-47.0) % MCV 90.4 (80.0-100.0) fL MCH 30.3 (25.0-34.0) pg MCHC 33.5 (32.0-36.0) g/dL RDW Std Deviation 43.0 (36.4-46.3) fL RDW Coeff of Radha 12.9 (11.5-14.5) % Plt Count 169 (130-400) K/uL MPV 11.6 (9.4-12.4) fL Immature Gran % (Auto) 0.3 % Neut % (Auto) 68.3 % Lymph % (Auto) 20.4 % [place] % (Auto) 8.8 % Eos % (Auto) 1.9 % Baso % (Auto) 0.3 % Neut # (Auto) 4.42 (1.40-6.50) K/uL Lymph # (Auto) 1.32 (1.2-3.4) K/uL [place] # (Auto) 0.57 (0.11-0.59) K/uL Eos # (Auto) 0.12 (0-0.50) K/uL Baso # (Auto) 0.02 (0-0.2) K/uL Immature Gran # (Auto) 0.02 (0.01-0.20) K/uL D-Dimer Pending Sodium 142 (136-145) mmol/L Potassium 3.5 (3.5-5.1) mmol/L Chloride 109 H (98-107) mmol/L Carbon Dioxide 28 (21-32) mmol/L Anion Gap 5 (3-11) BUN 9 (6-23) mg/dl Creatinine 0.47 L (0.6-1.2) mg/dl Est Cr Clr Drug Dosing 114.7 ml/min Est GFR ( Amer) 111.2 ml/min Est GFR (Non-Af Amer) 95.9 ml/min BUN/Creatinine Ratio 19.1 (10-20) Glucose 84 (70-99(Fasting)) mg/dl Calcium 8.2 L (8.6-10.3) mg/dl Magnesium 2.0 (1.7-2.4) mg/dl Total Bilirubin 0.9 (0.2-1.0) mg/dl AST 15 (13-39) U/L ALT 19 (7-52) U/L Alkaline Phosphatase 93 (34-104) U/L Total Protein 5.8 L (6.0-8.3) gm/dl Albumin 3.4 (3.4-5.0) gm/dl Globulin 2.4 L (2.5-4.0) gm/dl Albumin/Globulin Ratio 1.4 (0.9-2) Lipase 13 (11-82) U/L Diagnostic Findings Pancreas Ultrasound 01/13/23 13:25 Exam(s): US OTHER pancreas EXAM: US Abdomen Limited, pancreas CLINICAL HISTORY: Reason for exam: worsened abd pain, eval abscess, pancreatits. TECHNIQUE: Real-time ultrasound of the right lower quadrant with image documentation. COMPARISON: No relevant prior studies available. FINDINGS Status post Whipple. Heterogeneous pancreas. Prominent main pancreatic duct measures 6 mm. Indwelling stent. Consider CT scan correlation. Electronically signed by: Haim Pinedo MD 01/13/23 20:20 PM KUB X-Ray 01/13/23 17:56 KUB HISTORY: Lower abdominal pain. eval ileus/obstruction COMPARISON: Abdomen and pelvis CT 01/12/2023. FINDINGS: Mildly dilated gas-filled loops of large and small bowel seen throughout the abdomen. This favors a mild ileus. Surgical clips within the right upper quadrant consistent with a prior cholecystectomy and Whipple procedure. A main pancreatic duct stent is again noted. No renal calculi. No ureteral calculi. No pneumoperitoneum or pneumatosis. IMPRESSION: Mildly dilated gas-filled loops of large and small bowel seen within the abdomen. This favors a mild ileus. A low-grade partial bowel obstruction could also have a similar appearance in the appropriate clinical setting but is considered less likely. ACT 112: Negative or not required by law. Electronically signed by: Krzysztof Bowen M.D. 01/13/2023 6:50 PM KUB X-Ray 01/14/23 08:56 KUB HISTORY: Lower abdominal pain. Ileus versus obstruction. Bowel distention. Follow-up. COMPARISON: KUB 01/13/2023. FINDINGS: Mildly dilated gas-filled loops of large and small bowel have slightly improved in the interval. This favors a resolving ileus. Moderate fecal re tention again noted. A pancreatic duct stent is unchanged in position. Postoperative changes consistent with prior Whipple/cholecystectomy. Pneumobilia again noted. Calcifications in the deep pelvis consistent with phleboliths. No renal calculi. No ureteral calculi. No pneumoperitoneum or pneumatosis. IMPRESSION: Slight improvement in the mildly dilated gas-filled loops of large and small bow el. This favors a resolving ileus. ACT 112: Negative or not required by law. Electronically signed by: Krzysztof Bowen M.D. 01/14/2023 10:08 AM PG Care Time/CCT Total # of Minutes Spent Total Time Spent with Patient: Total time spent is greater than 50% in coordination of care (as documented) at patient's floor/unit and/or counseling patient: Coding Level of Care Code 26922 SUB INP/OBS CARE 3/50MIN Diagnoses Acute pancreatitis K85.[address] scan R93.89 Vitamin D deficiency E55.9 Murmur R01.1 Hypomagnesemia E83.42
[2023-01-14] MEDS: PANCREAZE (LIPASE 16,800U) CAP PO SCH ×4 (08:53→16:02)
[2023-01-14] MEDS: LACTATED RINGER'S 1,000 ML IV SCH ×2 (08:55→16:01)
--- NOTE | 2023-01-14 10:10 | XRay Report ---
KUB HISTORY: Lower abdominal pain. Ileus versus obstruction. Bowel distention. Follow-up. COMPARISON: KUB 01/13/2023. FINDINGS: Mildly dilated gas-filled loops of large and small bowel have slightly improved in the inte rval. This favors a resolving ileus. Moderate fecal retention again noted. A pancreatic duct stent is unchanged in position. Postoperative changes consistent with prior Whipple/cholecystectomy. Pneumobi libia again noted. Calcifications in the deep pelvis consistent with phleboliths. No renal calculi. No ureteral calculi. No pneumoperitoneum or pneumatosis. IMPRESSION: Slight improvement in the mildly dilated gas-filled loops of large and small bowel. This favors a res olving ileus. ACT 112: Negative or not required by law. Electronically signed by: Krzysztof Bowen M.D. 01/14/2023 10:08 AM
--- NOTE | 2023-01-14 10:12 | Gastroenterology Progress Note ---
Date of Service January 14, 2023 Assessment & Plan (1) Acute pancreatitis: (2) History of surgery: Plan -NPO today. Advance to clear liquid diet tomorrow and advance as tolerated. -Continue pancreatic enzyme replacement of 500 units/kg/dose with PO. Therefore ordered 3 capsules prior to meals per hospital formulary. -Continue supportive care per primary team. -Contact GI salon receptionist over the weekend for any acute concerns. Admission and Anticipated Discharge Date Admission Date: January 12, 2023 Supervising Physician Co-Signing Physician Notes Agree with KELLY Vital as above Abd: Soft, NT, ND, +BS Feeling much better today Advance diet as tolerated CTA chest for elevated D-dimer today as per Primary team Subjective Patient reports she is feeling well this morning. Had returning abdominal pain with reintroduction of solid food yesterday. Had abdominal imaging which demo nstrated associated ileus and dilated PD. Remains on NPO status at this time. No abdominal pain, nausea or vomiting or other complaints at present. Labs reviewed. No leukocytosis, elevated liver panel or lipase. Review of Systems Constitutional: as per Subjective / HPI Gastrointestinal: as per Subjective / HPI Physical Exam Constitutional: WD/WN, vitals as above Eyes: EOM intact bilaterally Respiratory: normal respiratory effort, lungs clear to auscultation Cardiovascular: Rate/Rhythm: regular rate and regular rhythm Heart Sounds: no gallop and no murmur Gastrointestinal (Abdomen): normal bowel sounds, soft, nontender, no hepatosplenomegaly Inspection/Auscultation: abdomen not distended Musculoskeletal: Extremities: no cyanosis Skin: no rashes, warm and dry Neurologic: moves all extremities Psychiatric: A+Ox3, euthymic affect Results & Data Results & Data Vital Signs (Past 12 Hours) Vital Signs Temp Pulse Pulse Pulse Resp BP BP 01/14/23 08:04 36.6 C 69 12 144/86 H 01/14/23 05:40 36.8 C 68 18 172/82 H 01/14/23 01:52 81 01/13/23 23:19 37.2 C 79 18 156/71 H Pulse Ox O2 Del Method 01/14/23 08:04 97 Room Air 01/14/23 05:40 94 Room Air 01/14/23 01:52 01/13/23 23:19 92 Room Air PG Care Time/CCT Total # of Minutes Spent Total Time Spent with Patient: Total time spent is greater than 50% in coordination of care (as documented) at patient's floor/unit and/or counseling patient: Coding Level of Care Code 34704 SUB INP/OBS CARE 50MIN Diagnoses Acute pancreatitis K85.90 History of surgery Z98.890
--- NOTE | 2023-01-14 10:51 | Surgery Consultation ---
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 She underwent a CT a/p while she was here that noted she had evidence of pancreatitis. We have been consulted as KUB noted evidence of dilated loops of bowel concerning for ileus vs low grade partial SBO yesterday after she had pain while eating a regular diet. She has since been backed down to NPO and feels much better. Pain improved and she denies nausea/vomiting. She is passing flatus. KUB today showed improvement with resolving ileus. Labs today show WBC 6.4, LFTs okay, Cr 0.4, Lipase 13. From our standpoint could likely resume clears and see how she fairs. However GI recommending she remain NPO for rest of day. Return of pain with advancement in diet likely secondary to her pancreatitis as the pain was similar to admission. Diet advancement per GI. If issues with constipation while in house could consider suppositories. There are no plans for surgical intervention indicated at this time. (2) Abdominal pain: Supervising Physician Co-Signing Physician Notes Patient seen and examined, labs and imaging reviewed, agree with above. 77-year-old female with history of Whipple admitted with pancreatitis. KUB yesterday showed an ileus and she had some increasing pain. She is passing gas and her pain is resolving. KUB today is improved. On exam she is afebrile stable vitals, mild tenderness to palpation in the epigastrium but otherwise benign. No evidence of small bowel obstruction. No evidence of continued ileus. May advance diet from general surgery standpoint, surgery will sign off. History of Present Illness Attending Physician: Rinku Yoo MD History of Present Illness This is a 77yF with a PMH of whipple procedure at [facility] [place] in 2019 for benign pancreatic lesion, hyperparathyroidism, HTN, who presented to the [facility] ED on 01/12/23 with complaints of abdominal pain. Patient reports her pain was located in the epigastric region that radiated into her back like a band. She underwent a CT a/p while she was here that noted she had evidence of pancreatitis. She was admitted to the hospitalists for further management with GI consult. She was managed conservatively and as symptoms improved her diet was advanced. She did well with the liquids, however once her diet was advanced to regular for dinner yesterday she had return of pain. Patient states the pain felt like when she was admitted as it was located in her upper abdomen. Currently she is feeling much better. She denies any abdominal pain, last pain meds were yesterday. NO nausea/vomiting. She is passing flatus. Last BM was tuesday. Allergies Allergy/AdvReac Type Severity Reaction Status Date / Time No Known Drug Allergies Allergy Unknown . Verified 01/04/23 08:44 Home Medications Medication Instructions Recorded Confirmed Type aspirin 81 mg tablet,delayed 81 mg PO QAM 03/27/19 01/12/23 History release (Jonnie Low Dose Aspirin) cholecalciferol (vitamin D3) 50 10,000 unit PO QAM #30 tabs 10/19/21 01/12/23 Rx mcg (2,000 unit) tablet sodium sul 1.479 gram-potas ch See Rx Instructions PO .COMPLEX 12/31/22 01/12/23 Rx 0.188 gram-magnes sul 0.225 gram #24 tabs tablet (Sutab) [id number] 3 cap PO AC #90 caps 01/13/23 Rx 16,000-57,500-60,500 unit capsule,delayed rel (Pertzye) Patient History Medical History Diverticulosis Mild hypertension pt reports no meds needed Vitamin D deficiency Surgical History H/O breast biopsy H/O parathyroidectomy History of surgery Whipple Procedure 2019- had a non cancerous spot on pancreas Hx of colonoscopy S/P tubal ligation Family History Father Stroke syndrome Coronary heart disease Mother Coronary heart disease Lung cancer Myocardial infarction Sister Breast cancer Unknown Breast cancer Aunt Breast cancer Denies family history of Ovarian cancer Prostate cancer Colorectal cancer Social History Smoking Status: Never smoker Second Hand Exposure: No; Do You Dip or Chew Tobacco: No; Hx Alcohol Use: Yes Alcohol type: wine Hx Substance Use: No Preferred Language: Serbian Communication Ability: Effective Visual Impairment: No Limitations Hearing Ability: Normal Project Management Consultant Required: No Beliefs That Will Affect Care: None marital status: Current Living Situation: Spouse current occupational status: retired Feels Safe at Home: Yes Childhood Exposure to Second-Hand Smoke: No Dental Care, Regularly: Yes Physical Activity Frequency: 3-4 Times per Week Seatbelt Use: always Sunscreen Use: Yes Assistive Devices: None Review of Systems Constitutional: no fever and no chills Respiratory: no dyspnea Cardiovascular: no chest pain Gastrointestinal: + abdominal pain (epigastric, but improved), + vomiting (after pain meds on admission, none since) and + constipation; no nausea Physical Exam Physical Exam: awake/alert, no distress Constitutional: well developed and well nourished; no acute distress Respiratory: normal respiratory effort Gastrointestinal (Abdomen): Inspection/Auscultation: abdomen not distended Percussion/Palpation: + abdomen tender (mild discomfort to deep palpation in epigastric region) and abdomen soft Results & Data Vital Signs (Past 12 Hours) Vital Signs Temp Pulse Pulse Pulse Resp BP BP 01/14/23 08:04 36.6 C 69 12 144/86 H 01/14/23 05:40 36.8 C 68 18 172/82 H 01/14/23 01:52 81 01/13/23 23:19 37.2 C 79 18 156/71 H Pulse Ox O2 Del Method 01/14/23 08:04 97 Room Air 01/14/23 05:40 94 Room Air 01/14/23 01:52 01/13/23 23:19 92 Room Air Diagnostic Findings ABDOMEN AND PELVIS CT WITH IV CONTRAST CT DOSE: 555.60 mGy.cm HISTORY: Generalized abdominal pain. TECHNIQUE: Multiaxial CT images of the abdomen and pelvis were performed following the use of intravenous contrast. A dose lowering technique was utilized adhering to the principles of ALARA. COMPARISON STUDY: Abdomen and pelvis CT 10/04/2019. FINDINGS: The lung bases are clear. No pneumoperitoneum. No pneumatosis. No acute fractures identified. Artifact versus a small filling defect seen within a left lower lobe subsegmental pulmonary artery on image 13. There is a 3.3 cm cyst within the right hepatic dome, unchanged. Mild hepatic steatosis. The main portal vein is patent. The spleen, adrenal glands, and right kidney are unremarkable. There is a 1.2 cm cyst within the left kidney, unchanged. There are small bilateral peripelvic renal cysts. No hydronephrosis. Normal caliber abdominal aorta. No retroperitoneal lymphadenopathy. Status post Whipple procedure. There is edema/inflammatory change surrounding the residual pancreas consistent with an acute pancreatitis. There is a main pancreatic duct stent seen within the mid aspect of the residual pancreas. There is mild dilatation of the main pancreatic duct measuring up to 5.5 mm. There are few punctate foci of gas within the mid abdomen on image 152 which likely resides within the adjacent bowel. Pneumobilia is noted. No loculated fluid collections identified. No evidence for pancreatic necrosis. The bladder, uterus, and adnexa are unremarkable. Trace fluid anterior to the liver. Mild thickening of the gastric wall adjacent to the pancreas which is likely reactive. Otherwise, no bowel wall thickening or obstruction. Normal appendix. Colonic diverticulosis. No evidence for acute diverticulitis. IMPRESSION: 1. Prior Whipple procedure. There is edema/fat stranding surrounding the residual pancreas consistent with acute pancreatitis. 2. There is a main pancreatic duct stent seen within the mid aspect of the residual pancreas. There is mild dilatation of the main pancreatic duct measuring up to 5.5 mm. 3. Artifact versus a small filling defect seen within a left lower lobe subsegmental pulmonary artery. A small pulmonary embolus is not excluded. 4. Mild hepatic steatosis. 5. Additional findings as described above. ACT 112: Negative or not required by law. Electronically signed by: Krzysztof Bowen M.D. 01/12/2023 11:07 AM KUB HISTORY: Lower abdominal pain. eval ileus/obstruction COMPARISON: Abdomen and pelvis CT 01/12/2023. FINDINGS: Mildly dilated gas-filled loops of large and small bowel seen throughout the abdomen. This favors a mild ileus. Surgical clips within the right upper quadrant consistent with a prior cholecystectomy and Whipple procedure. A main pancreatic duct stent is again noted. No renal calculi. No ureteral calculi. No pneumoperitoneum or pneumatosis. IMPRESSION: Mildly dilated gas-filled loops of large and small bowel seen within the abdomen. This favors a mild ileus. A low-grade partial bowel obstruction could also have a similar appearance in the appropriate clinical setting but is considered less likely. ACT 112: Negative or not required by law. Electronically signed by: Krzysztof Bowen M.D. 01/13/2023 6:50 PM KUB HISTORY: Lower abdominal pain. Ileus versus obstruction. Bowel distention. Follow-up. COMPARISON: KUB 01/13/2023. FINDINGS: Mildly dilated gas-filled loops of large and small bowel have slightly improved in the interval. This favors a resolving ileus. Moderate fecal retention again noted. A pancreatic duct stent is unchanged in position. Postoperative changes consistent with prior Whipple/cholecystectomy. Pneumobilia again noted. Calcifications in the deep pelvis consistent with phleboliths. No renal calculi. No ureteral calculi. No pneumoperitoneum or pneumatosis. IMPRESSION: Slight improvement in the mildly dilated gas-filled loops of large and small bowel. This favors a resolving ileus. ACT 112: Negative or not required by law. Electronically signed by: Krzysztof Bowen M.D. 01/14/2023 10:08 AM PG Care Time/CCT Total # of Minutes Spent Total Time Spent with Patient: Total time spent is greater than 50% in coordination of care (as documented) at patient's floor/unit and/or counseling patient: Coding Level of Care Code 63826 INT INP/OBS CARE 1/40MIN Diagnoses Acute pancreatitis K85.90 Abdominal pain R10.9
[2023-01-14 11:50] LABS: D Dimer 2320 ug/L FEU (0-500)
[2023-01-14] MEDS ORDERED: OPTIRAY 320 500ml IV ONE (13:11)
--- NOTE | 2023-01-14 13:28 | CT Scan Report ---
CT ANGIOGRAM OF THE CHEST CLINICAL HISTORY: Atypical chest pain. COMPARISON STUDY: Chest x-ray dated 10/04/2019. TECHNIQUE: Following the IV administration of 170 cc of Optiray 320, CT angiogram of the chest was pe rformed from the upper abdomen to the thoracic inlet utilizing the pulmonary embolus protocol. Images are reviewed in the axial, sagittal, and coronal planes. 3-D MIPS images are created and assessed. I V contrast was administered without complication. A dose lowering technique was utilized adhering to the principles of ALARA. CT DOSE: 528.43 mGycm FINDINGS: Thyroid: Imaged portions of the thyroid gland are normal in size and attenuation. Thoracic aorta: The thoracic aorta is normal in caliber and demonstrates standard 3-vessel arch anato my. No dissection is seen. Pulmonary vasculature: The pulmonary trunk is normal in caliber. There are segmental and subsegmental pulmonary emboli within branches of the left lower lobe pulmonary artery. No additional filling defe cts are seen within the main, lobar, or segmental pulmonary branches to indicate additional pulmonary emboli. Heart: The heart is normal in size and without pericardial effusion. Lungs and pleural spaces: There is trace left pleural effusion. Scarring/atelectasis is noted at both lung bases. There is no airspace consolidation typical for pneumonia. The trachea and central airway s are clear. Mediastinum: There is no mediastinal lymphadenopathy. Angela: Clear. Axillae: There is no axillary lymphadenopathy. Upper abdomen: The liver is steatotic. Pneumobilia is observed. Partially visualized upper abdominal viscera is otherwise within normal limits. Skeletal structures: The skeletal structures are osteopenic. No lytic or blastic bony lesions are see n. Mild degenerative change is noted in the shoulders and thoracic spine. IMPRESSION: 1. There are segmental and subsegmental pulmonary emboli within branches of the left lower lobe pulmo nary artery. 2. Trace left pleural effusion. 3. There is no airspace consolidation typical for pneumonia. 4. Hepatic steatosis and pneumobilia. 5. Additional findings as above. ACT 112: Negative or not required by law. Electronically signed by: Ricardo Mac M.D. 01/14/2023 1:26 PM
[2023-01-14] MEDS ORDERED: RIVAROXABAN 15 MG TAB PO SCH (13:55)
--- NOTE | 2023-01-14 15:00 | Ultrasound Report ---
BILATERAL LOWER EXTREMITY VENOUS DOPPLER HISTORY: Pulmonary emboli. Assess for DVT. COMPARISON STUDY: None. FINDINGS: There is normal compressibility, flow, and augmentation within the bilateral lower extremit y deep venous systems. IMPRESSION: No DVT within the right or left lower extremity. ACT 112: Negative or not required by law. Electronically signed by: Krzysztof Bowen M.D. 01/14/2023 2:58 PM
[2023-01-15] MEDS: LACTATED RINGER'S 1,000 ML IV SCH (02:24)
[2023-01-15] MEDS: RIVAROXABAN 15 MG TAB PO SCH ×2 (02:36→15:30)
[2023-01-15 08:04] LABS: Basophils # (auto) 0.02 K/uL (0-0.2); Basophils % (auto) 0.4 %; Eosinophils # (auto) 0.16 K/uL (0-0.50); Eosinophils % (auto) 3.3 %; Hematocrit (blood only) 37.3 % (37.0-47.0); Hemoglobin 12.8 g/dl (12.0-16.0); Immature Granulocytes # (auto) 0.02 K/uL (0.01-0.20); Immature Granulocytes % (auto) 0.4 %; Lymphocytes # (auto) 1.42 K/uL (1.2-3.4); Lymphocytes % (auto) 29.5 %; Mean Corpuscular Hemoglobin 30.3 pg (25.0-34.0); Mean Corpuscular Hgb Conc 34.3 g/dL (32.0-36.0); Mean Corpuscular Volume 88.2 fL (80.0-100.0); Monocytes # (auto) 0.38 K/uL (0.11-0.59); Monocytes % (auto) 7.9 %; Neutrophils # (auto) 2.82 K/uL (1.40-6.50); Neutrophils % (auto) 58.5 %; Platelet Count 199 K/uL (130-400); RDW Coefficient of Variation 12.8 % (11.5-14.5); RDW Standard Deviation 41.7 fL (36.4-46.3); Red Blood Count 4.23 M/uL (4.20-5.40); White Blood Count 4.82 K/ul (4.8-10.8)
--- NOTE | 2023-01-15 08:09 | Hospitalist Progress Note ---
Date of Service January 15, 2023 Assessment & Plan (1) Acute pancreatitis: Plan: acute onset of pain in patient s/p Whipple at [facility] in the past Lipase elevated, imaging c/w pancreatitis. No etoh use. Patient is s/p cholecystectomy. LFTs wnl GI consulted Diet advanced to full liquids AM 5/4, was tolerating well without pain but was advanced directly to low fat diet for lunch by GI and developed worsening pain. Obtained KUB/US pancreas for eval --> possible ileus vs partial SBO and made NPO, resumed IVF. General surgery consulted Lipase normalized on repeat, 13 this morning. TRG 55 wnl Has been afebrile, WBC wnl Repeat KUB this morning w/ improvement. Passing gas, no n/v. No BM yet Discussed w/ GI/surgery --> will trial clear liquids for dinner and plan to advance diet slowly to prevent recurrance Creon added by GI -- continue Monitor advancement of diet on clear liquids for any worsening pain Monitor labs in AM (2) Abnormal CT scan: Plan: CT today with mention of possible artifact vs small filling defect in the LLL, subsegmental PE could not be rule out at this time Given no pleuritic chest pain, 96% on RA and not hypotensive, suspect artifact. No evidence for DVT in LEs Monitor for any symptoms, CTA if needed (could alternatively check ddimer given low pre-test probability) --> checking Ddimer given pain w/ inspiration but ?if was referred from her pancreas If Ddimer elevated will need to complete CTA to definitively r/o DVT (3) Vitamin D deficiency: Plan: -Hold vitamin D for now Vit D level checked given supplementation and low at 20 --> continue supplementation and consider increasing (4) Murmur: Plan: slight murmur on exam, c/w mild Not volume overloaded at present, denied any symptoms of syncope/angina/dyspnea but did have a possible syncopal type episode over a year ago. Unclear if maybe was dehydrated at that point or not but discussed to monitor for any symptoms and would check ECHO if issues. Otherwise can be followed up outpatient (5) Hypomagnesemia: Plan: checked w/ cramping 5/4, low at 1.6 and IV replacement ordered Repeat wnl at 2 (6) Pulmonary emboli: Plan NPO for this morning --> will trial clear liquid diet for supper. continue IVF for now Admission and Anticipated Discharge Date Admission Date: January 14, 2023 Results & Data Results & Data Vital Signs (Past 12 Hours) Vital Signs Temp Pulse Pulse Pulse Resp BP BP 01/15/23 08:01 36.6 C 72 18 188/102 H 01/15/23 02:25 36.6 C 72 18 174/80 H 01/14/23 22:50 69 01/14/23 22:50 36.8 C 67 18 190/88 H Pulse Ox O2 Del Method 01/15/23 08:01 97 Room Air 01/15/23 02:25 96 Room Air 01/14/23 22:50 01/14/23 22:50 96 Room Air PG Care Time/CCT Total # of Minutes Spent Total Time Spent with Patient: Total time spent is greater than 50% in coordination of care (as documented) at patient's floor/unit and/or counseling patient: Coding Diagnoses Acute pancreatitis K85.[address] scan R93.89 Vitamin D deficiency E55.9 Murmur R01.1 Hypomagnesemia E83.42 Pulmonary emboli I26.99
[2023-01-15 08:28] LABS: Albumin Globulin Ratio 1.4 (0.9-2); Albumin Level 3.7 gm/dl (3.4-5.0); BUN Creatinine Ratio 18.2 (10-20); Bilirubin,Total 0.9 mg/dl (0.2-1.0); Calcium 8.7 mg/dl (8.6-10.3); Creatinine Clr Calc Pharmacy 122.6 ml/min; Est GFR (African American) 113.6 ml/min; Est GFR (Non-African American) 98.1 ml/min; Globulin 2.7 gm/dl (2.5-4.0); Magnesium 1.9 mg/dl (1.7-2.4); Potassium 3.7 mmol/L (3.5-5.1); Total Protein 6.4 gm/dl (6.0-8.3)
[2023-01-15] MEDS: PANCREAZE (LIPASE 16,800U) CAP PO SCH ×3 (08:30→15:31)
[2023-01-15 08:31] LABS: INR 1.2 (0.9-1.1); Prothrombin Time 13.3 Seconds (9.0-12.0)
[2023-01-15] MEDS ORDERED: ACETAMINOPHEN 500 MG TAB PO PRN (08:34)
--- NOTE | 2023-01-15 11:24 | Discharge Summary ---
Date of Service January 15, 2023 Admission HPI Per Admitting Provider Chief Complaint: Abd pain Primary Care Provider: Pablo Sue MD Alda is a 77 year old female with a PMH significant for previous pancreatic head mass S/P Whipple procedure at [facility] in December 2019 who presented to the [facility] ED on 01/12/23 with a chief complaint of abdominal pain. She was initially noted to be hypertensive at 187/84 otherwise vitals were stable. Labs were significant for a leukocytosis of 11 with left shift of 8.91, lipase of 293. CT of the abd/pelvis w/IV con shows findings consistent with acute pancreatitis with mild dilation of the main pancreatic duct at 5.5 mm. She was also incidentally noted to have "Artifact versus a small filling defect seen within a left lower lobe subsegmental pulmonary artery. A small pulmonary embolus is not excluded.". The ED spoke with Dr. Tran who agrees with admission and management of pancreatitis, they will follow. Prior to admission the patient was given a total of 10 mg IV morphine and 500 mL NSS. At the time of the exam the patient was lying in bed in no acute distress with her sitting bedside. She states that she has not had a previous complication after her Whipple procedure. Over the past week she noticed that she has having more gas and passing more gas. Yesterday she started to develop mild-moderate upper/central abdominal pain after lunch. After dinner she started to experience severe abdominal pain in the same locations but with radiation of the pain to her back as well. She denies fevers but was having chills. She only experienced an episode of non-bloody emesis in the ED after receiving morphine. She has been holding her daily aspirin since 01/07 in preparation for a routine colonoscopy with Dr. Neumann scheduled for tomorrow; she had not yet started her bowel prep. Her pain is currently controlled after her second dose of morphine. She is a full code and would want her to make medical decisions for her if she could not make them herself. Please refer to Dr. Villeda's attestation for any changes to the treatment plan Admission Exam Per Admitting Provider Physical Exam: General:In no acute distress, stated age, well-nourished, good hygiene HEENT:Normocephalic, atraumatic, no scleral icterus, pupils around round, symmetrical, and reactive to light, moist mucus membranes, trachea midline, no thyromegaly Chest/Pulm:No respiratory distress, symmetrical chest expansion, clear breath sounds throughout Cardiac:RRR, no murmurs noted Abdomen:Negative for ascites and bruising, hypoactive bowel sounds, soft, tender to palpation in the upper and central abdominal regions without rebound tenderness Musculoskeletal:Symmetrical and without signs of acute trauma, upper and lower extremities with full ROM, no atrophy, spasticity, or flaccidity Extremities:Radial, dorsalis pedis, and posterior tibial pulses are intact and symmetrical, no edema noted in the BL LE's Skin:Warm, dry, no rashes , lesions, or scars noted Neuro:Alert and oriented to person, place, month, year, and president, no focal defects, no tremors noted Psych:No acute distress, calm and cooperative during the exam Principal Diagnosis Pancreatitis, Pulmonary Emboli Discharge Exam General: WD/WN female in no acute distress, reading a book, reported just had a bowel movement. Head: normocephalic, atraumatic, mmm, trachea midline Resp: clear to auscultation, no w/c, 97% on RV Cardiac: RRR, S4 vs faint systolic murmur, no edema, pulses palpable GI: +BS throughout, soft, nontender to palpation : no rodriguez MSK/Neuro: no focal deficit, no slurred speech, CN intact grossly Psych: AOx3, cooperative but initially anxious about wanting to go home and irritable about continued inpatient stay Discharge Data Allergies Allergy/AdvReac Type Severity Reaction Status Date / Time No Known Drug Allergies Allergy Unknown . Verified 01/04/23 08:44 Consultations 01/12/23 12:15 ED Decision to Admit Stat 01/12/23 12:53 Consult Gastroenterology Routine 01/14/23 08:35 Consult General Surgery Routine Ordered Studies Abdomen/Pelvis CT 01/12/23 08:[address] WITH IV CONTRAST CT DOSE: 555.60 mGy.cm HISTORY: Generalized abdominal pain. TECHNIQUE: Multiaxial CT images of the abdomen and pelvis were performed following the use of intravenous contrast. A dose lowering technique was utilized adhering to the principles of ALARA. COMPARISON STUDY: Abdomen and pelvis CT 10/04/2019. FINDINGS: The lung bases are clear. No pneumoperitoneum. No pneumatosis. No acute fractures identified. Artifact versus a small filling defect seen within a left lower lobe subsegmental pulmonary artery on image 13. There is a 3.3 cm cyst within the right hepatic dome, unchanged. Mild hepatic steatosis. The main portal vein is patent. The spleen, adrenal glands, and right kidney are unremarkable. There is a 1.2 cm cyst within the left kidney, unchanged. There are small bilateral peripelvic renal cysts. No hydronephrosis. Normal caliber abdominal aorta. No retroperitoneal lymphadenopathy. Status post Whipple procedure. There is edema/inflammatory change surrounding the residual pancreas consistent with an acute pancreatitis. There is a main pancreatic duct stent seen within the mid aspect of the residual pancreas. There is mild dilatation of the main pancreatic duct measuring up to 5.5 mm. There are few punctate foci of gas within the mid abdomen on image 152 which likely resides within the adjacent bowel. Pneumobilia is noted. No loculated fluid collections identified. No evid ence for pancreatic necrosis. The bladder, uterus, and adnexa are unremarkable. Trace fluid anterior to the liver. Mild thickening of the gastric wall adjacent to the pancreas which is likely reactive. Otherwise, no bowel wall thickening or obstruction. Normal appendix. Colonic diverticulosis. No evidence for acute diverticulitis. IMPRESSION: 1. Prior Whipple procedure. There is edema/fat stranding surrounding the residual pancreas consistent with acute pancreatitis. 2. There is a main pancreatic duct stent seen within the mid aspect of the residual pancreas. There is mild dilatation of the main pancreatic duct measuring up to 5.5 mm. 3. Artifact versus a small filling defect seen within a left lower lobe subsegmental pulmonary artery. A small pulmonary embolus is not excluded. 4. Mild hepatic steatosis. 5. Additional findings as described above. ACT 112: Negative or not required by law. Electronically signed by: Krzysztof Bowen M.D. 01/12/2023 11:07 AM Pancreas Ultrasound 01/13/23 13:25 Exam(s): US OTHER pancreas EXAM: US Abdomen Limited, pancreas CLINICAL HISTORY: Reason for exam: worsened abd pain, eval abscess, pancreatits. TECHNIQUE: Real-time ultrasound of the right lower quadrant with image documentation. COMPARISON: No relevant prior studies available. FINDINGS Status post Whipple. Heterogeneous pancreas. Prominent main pancreatic duct measures 6 mm. Indwelling stent. Consider CT scan correlation. Electronically signed by: Haim Pinedo MD 01/13/23 20:20 PM KUB X-Ray 01/13/23 17:56 KUB HISTORY: Lower abdominal pain. eval ileus/obstruction COMPARISON: Abdomen and pelvis CT 01/12/2023. FINDINGS: Mildly dilated gas-filled loops of large and small bowel seen throughout the abdomen. This favors a mild ileus. Surgical clips within the right upper quadrant consistent with a prior cholecystectomy and Whipple procedure. A main pancreatic duct stent is again noted. No renal calculi. No ureteral calculi. No pneumoperitoneum or pneumatosis. IMPRESSION: Mildly dilated gas-filled loops of large and small bowel seen within the abdomen. This favors a mild ileus. A low-grade partial bowel obstruction could also have a similar appearance in the appropriate clinical setting but is considered less likely. ACT 112: Negative or not required by law. Electronically signed by: Krzysztof Bowen M.D. 01/13/2023 6:50 PM KUB X-Ray 01/14/23 08:56 KUB HISTORY: Lower abdominal pain. Ileus versus obstruction. Bowel distention. Follow-up. COMPARISON: KUB 01/13/2023. FINDINGS: Mildly dilated gas-filled loops of large and small bowel have slightly improved in the interval. This favors a resolving ileus. Moderate fecal retention again noted. A pancreatic duct stent is unchanged in position. Postoperative changes consistent with prior Whipple/cholecystectomy. Pneumobilia again noted. Calcifications in the deep pelvis consistent with phleboliths. No renal calculi. No ureteral calculi. No pneumoperitoneum or pneumatosis. IMPRESSION: Slight improvement in the mildly dilated gas-filled loops of large and small bowel. This favors a resolving ileus. ACT 112: Negative or not required by law. Electronically signed by: Krzysztof Bowen M.D. 01/14/2023 10:08 AM Chest CTA 01/14/23 11:51 CT ANGIOGRAM OF THE CHEST CLINICAL HISTORY: Atypical chest pain. COMPARISON STUDY: Chest x-ray dated 10/04/2019. TECHNIQUE: Following the IV administration of 170 cc of Optiray 320, CT angiogram of the chest was performed from the upper abdomen to the thoracic inlet utilizing the pulmonary embolus protocol. Images are reviewed in the axial, sagittal, and coronal planes. 3-D MIPS images are created and assessed. IV contrast was administered without complication. A dose lowering technique was utilized adhering to the principles of ALARA. CT DOSE: 528.43 mGycm FINDINGS: Thyroid: Imaged portions of the thyroid gland are normal in size and attenuation. Thoracic aorta: The thoracic aorta is normal in caliber and demonstrates standard 3-vessel arch anatomy. No dissection is seen. Pulmonary vasculature: The pulmonary trunk is normal in caliber. There are segmental and subsegmental pulmonary emboli within branches of the left lower lobe pulmonary artery. No additional filling defects are seen within the main, lobar, or segmental pulmonary branches to indicate additional pulmonary emboli. Heart: The heart is normal in size and without pericardial effusion. Lungs and pleural spaces: There is trace left pleural effusion. Scarring/atelectasis is noted at both lung bases. There is no airspace consolidation typical for pneumonia. The trachea and central airways are clear. Mediastinum: There is no mediastinal lymphadenopathy. Angela: Clear. Axillae: There is no axillary lymphadenopathy. Upper abdomen: The liver is steatotic. Pneumobilia is observed. Partially visualized upper abdominal viscera is otherwise within normal limits. Skeletal structures: The skeletal structures are osteopenic. No lytic or blastic bony lesions are seen. Mild degenerative change is noted in the shoulders and thoracic spine. IMPRESSION: 1. There are segmental and subsegmental pulmonary emboli within branches of the left lower lobe pulmonary artery. 2. Trace left pleural effusion. 3. There is no airspace consolidation typical for pneumonia. 4. Hepatic steatosis and pneumobilia. 5. Additional findings as above. ACT 112: Negative or not required by law. Electronically signed by: Ricardo Mac M.D. 01/14/2023 1:26 PM Venous Doppler Study 01/14/23 13:40 BILATERAL LOWER EXTREMITY VENOUS DOPPLER HISTORY: Pulmonary emboli. Assess for DVT. COMPARISON STUDY: None. FINDINGS: There is normal compressibility, flow, and augmentation within the bilateral lower extremity deep venous systems. IMPRESSION: No DVT within the right or left lower extremity. ACT 112: Negative or not required by law. Electronically signed by: Krzysztof Bowen M.D. 01/14/2023 2:58 PM ECHOCARDIOGRAM --> LV grossly normal in size. Mild cLVH. LV systolic function is normal. RV normal in size and function. Grade I diastolic dysfunction. PA pressure 35- 40mmhg. IVC not well visualized to assess VENESSA, pressures likely overestimated due to hyperdynamic function. Hospital Course (1) Acute pancreatitis: acute onset of pain in patient s/p Whipple at [facility] in the past Lipase elevated, imaging c/w pancreatitis. Unclear cause given no alcohol use reported. Is s/p cholecystectomy. LFTs wnl. Viral illness? GI consulted Diet advanced from clears to low fat w/ recurrence of pain and backed to NPO/KUB obtained and ileus vs SBO and IVF provided again and general surgery consulted. Repeat KUb w/ improvement, trial clears. +BM this morning 01/15 and diet advanced to full liquids --> low fat diet Information on low fat diet provided for patient. Lipase normalized, 13 on repeat. TRG 55 Creon added by GI and will plan to continue at d/c GI rescheduling outpatient screening c-scope given acute pancreatitis. Instructed patient to consider f/u her prior surgeon who performed her Whipple at discharge WBC wnl, afebrile (2) Abnormal CT scan: CT AP with mention of possible artifact vs small filling defect in the LLL, subsegmental PE could not be rule out at this time on admission however initially patient denied any pleuritic chest pain and denied any hx DVT/PE, family history of such or recent trauma/immobilization and was thought to be low on differential, however further questioning concerning for pleuritic chest pain and ddimer checked which was elevated and prompted CT chest for PE was ordered, which showed segmental and subsegmental pulmonary emboli within branches of the left lower lobe pulmonary artery. Of note, no hypotension or hypoxia during hospitalization. Started Xarelto 15mg BID and planned x 21 days, then decrease to 20mg daily 02/05. (3) Vitamin D deficiency: Vit D level checked given supplementation and low at 20 --> continue supplementation and consider increasing (4) Murmur: slight murmur on exam, ?S4 vs ECHO obtained, no significant valvular disease. Systolic function normal. Did not cLVH, diastolic dysfunction --> rec monitoring BPs at home, consideration for sleep study but otherwise did not appear significantly volume overloaded and remained 97% on RA F/u outpatient (5) Hypomagnesemia: checked w/ cramping 01/13, low at 1.6 and IV replacement ordered and repeat remaining stable w/o further replacement (6) Pulmonary emboli: as above under #2 Xarelto started inpatient and continued outpatient Hypercoagulable labs pending at d/c outpt f/u, consideration f/u her prior surgeon for her whipple given unclear duration for her PEs repeat hgb stable, no bleeding reported to monitor for any bleeding while on xarelto CM provided coupon for first month rx (7) Ileus: on imaging, general surgery consulted improvement on repeat imaging, diet advanced +BM AM 01/15, will not repeat KUB She has NEVER had SBO in the past but discussed given her hx Whipple she is at r isk and to monitor for decreased/absent flatus or no bowel movements/worsening abd pain to return to ER Slow advancement of diet Plan discharged home on low fat diet, outpt f/u GI Xarelto for segmental/subsegmental PEs, f/u outpatient hypercoagulable panel -- ref to heme/onc if any + values. Total Time Total Time Spent Total Time Spent (In Minutes): 50 Discharge Plan Discharge Items Patient Disposition: Home - Self-Care Reason For Visit: ABD PAIN Discharge Diagnosis: Pancreatitis, Pulmonary Emobli Goals: You have been hospitalized for an acute medical problem. During your stay at [facility], we have made an effort to correct the problem that brought you to the hospital while keeping you as comfortable as possible. Medications were used to bring your condition under control and your discharge instructions will include directions for any medications you should take after leaving the hospital. Please make sure you see your Primary Care Provider as part of your follow up plan. Activity: As commented below Non-emergency contact: Primary Care Provider and Development Planner Call non-emergency contact if: you have any medication questions, your symptoms worsen, your pain is not controlled and you have a fever Follow-up/Referrals: Jose Neumann DO [Physician] - 01/19/23 2:00 pm Pablo Sue MD [Primary Care Provider] - 01/21/23 10:30 am Diet: Low Fat Addtl Attending Provider Instructions: You have been hospitalized and found to have evidence for pancreatitis. This was treated conservatively with IV fluids and pain control and have advanced your diet to low fiber. GI was consulted and recommends you continue creon three times daily to help supplement pancreatic enzymes and will reschedule your colonoscopy given acute pancreatitis to allow for you to recover from this first. Please continue low fat diet and then can advance over the next couple of days. We also then completed a Cat scan of the chest for concerns for possible embolism due to pain with breathing and this did show some small blood clots. Given this appeared unprovoked, we did send for hypercoagulable labs to see if anything would be positive to necessitate lifelong anticoagulation or if you can get away with a shorter course. Will plan for at least three months and you will take Xarelto 15mg by mouth twice daily for 21 days then 20mg daily with supper after the first 21 days. You will start the once daily dosing on 02/05. You have been sent a starter pack so please note to switch to the 20mg dosing on the and you will have a leftover tablet or two from the starter pack. You should monitor for any bleeding in your urine/stool/sputum and alert primary care if this occurs. I believe you should follow up with your previous surgeon as an outpatient who did your initial pancreas surgery given recurrence of pancreatitis and unknown cause for clot just to be safe. If you develop any increased chest pain, shortness of breath, dizziness, lightheadedness, please return to the closest emergency department. Please follow up with primary care after discharge to monitor your status. It has been a pleasure being a part of the medical team providing for you while you have been in the hospital. Take care! Pending Studies at Discharge: Yes Studies:: Hypercoagulable Labs Stand-Alone Forms: My [facility], Smoking Cessation Medications and DC Order Prescriptions: [facility] 16,000-57,500- 60,500 unit Capsule,Delayed Release(Dr/Ec) 3 cap PO AC Qty: 90 0RF Xarelto DVT-PE Treat 30d Start 15 mg (42)- 20 mg (9) tablets,dose pack See Rx Instructions .ROUTE .COMPLEX Qty: 51 0RF Rx Instructions: take one-15 mg tablet twice daily for 21 days, then one-20 mg tablet once daily; must take with meal/food Xarelto 20 mg tablet 20 mg PO PM Qty: 30 2RF Rx Instructions: must administer with evening meal Continued cholecalciferol (vitamin D3) 50 mcg (2,000 unit) tablet 10,000 unit PO QAM Qty: 30 0RF Sutab 1.479-0.188- 0.225 gram tablet See Rx Instructions PO .COMPLEX Qty: 24 0RF Rx Instructions: TAKE FIRST DOSE AT 6 PM AND SECOND DOSE 6 HOURS PRIOR TO PROCEDURE BIN: [id number] PCN: CN GROUP: [id number] Adacel(Tdap Adolesn/Adult)(PF) 2 Lf-(2.5-5-3-5 mcg)-5Lf/0.5 mL syringe 0.5 ml IM ONCE Qty: 0.5 0RF aspirin [Jonnie Low Dose Aspirin] 81 mg tablet,delayed release (DR/EC) 81 mg PO QAM Discharge Orders: Discharge Order (Routine); Ordered 01/15/23 Ordered By: Brisa Chase Admission Data Admit Date/Time: 01/14/23 12:03 Attending Provider: Rinku Yoo Admit Provider: Bro Villeda Primary Care Provider: Pablo Sue Other Providers: Bro Villeda ; Jose Neumann ; Geofrfey Vivas Supervising Physician Co-Signing Physician Notes The patient was seen by me. The chart was reviewed. Case discussed with ALVIN Moreira. Agree with assessment and plan. She will be discharged home today, January 15 Coding Level of Care Code 83412 INP/OBS DISCH >30 MIN Diagnoses Acute pancreatitis K85.[address] scan R93.89 Vitamin D deficiency E55.9 Murmur R01.1 Hypomagnesemia E83.42 Pulmonary emboli I26.99 Ileus K56.7
== END 2023-01-15 17:43 | disposition home or self-care (01) | DRG 438 ==
LOC: ED 08:07 → EDINP 08:07 → SUATTDRO 12:32 → EDINP 16:19 → 2W 16:35